=== PATIENT | male | born 1955 | race Caucasian/White ===

== ENCOUNTER 2024-03-18 13:22 | Inpatient (IN) | payer MEDICARE, OTHER ==
[2024-03-18 14:06] LABS: Basophils % (A) 0 %; Eosinophils # (A) 0.1 k/uL (0-0.7); Eosinophils % (A) 1 %; HCT 52.8 % (39.0-53.0); HGB 17.2 gm/dL (13.0-17.5); Lymphocytes # (A) 2.2 k/uL (1.0-4.8); Lymphocytes % (A) 11 %; MCH 28.8 pg (25.0-35.0); MCHC 32.5 g/dL (31.0-37.0); MCV 88.5 fL (80.0-100.0); Mean Platelet Volume 10.2; Monocytes # (A) 0.6 k/uL (0-1.0); Monocytes % (A) 3 %; Neutrophils # (A) 17.6 k/uL (1.3-7.7); Neutrophils % (A) 85 %; Platelet Count 374 k/uL (150-450); RBC 5.97 m/uL (4.30-5.90); RDW 13.5 % (11.5-15.5); WBC 20.7 k/uL (3.8-10.6)
[2024-03-18] MEDS: ONDANSETRON 4 MG/2 ML VIAL IVP STA (14:16)
[2024-03-18] MEDS: SODIUM CHLORIDE 0.9% 1,000 ML IV STA ×2 (14:16)
[2024-03-18 14:20] LABS: ALT 46 U/L (4-49); AST 35 U/L (17-59); African American GFR (CKD) 49 (>60 ml/min/1.73 sqM); Albumin 5.2 g/dL (3.5-5.0); Alkaline Phosphatase 72 U/L (38-126); Amylase 132 U/L (30-110); Anion Gap 29 mmol/L; Blood Urea Nitrogen 35 mg/dL (9-20); Calcium 9.5 mg/dL (8.4-10.2); Carbon Dioxide 11 mmol/L (22-30); Chloride 100 mmol/L (98-107); Glucose 235 mg/dL (74-99); Lipase 126 U/L (23-300); Non-African American GFR(CKD) 42 (>60 ml/min/1.73 sqM); Potassium 2.9 mmol/L (3.5-5.1); Sodium 140 mmol/L (137-145); Total Bilirubin 1.5 mg/dL (0.2-1.3); Total Protein 8.6 g/dL (6.3-8.2)
--- NOTE | 2024-03-18 14:20 | ED ---
Nausea/Vomiting/Diarrhea HPI - General Chief complaint: Nausea/Vomiting/Diarrhea Stated complaint: Vomiting Time Seen by Provider: 03/18/24 13:55 Source: patient, family, RN notes reviewed Mode of arrival: EMS Limitations: no limitations - History of Present Illness Initial comments: 68-year-old male with a history of A-fib and hypertension who is on Eliquis who states he had the onset 4 days ago with nausea vomiting after having diarrhea for a couple days. The next day he was fine the following day he tried to eat in the evening got nauseated again and started vomiting has been persistent since then intermittently he has had lightheadedness dizziness generalized weakness. He denies any overt palpitations but upon arrival was found to be in A-fib with RVR. No fevers chills sweats no overt chest pain. He did apparently have attempts at ablation and it was unsuccessful. This is per the patient's son. MD complaint: nausea, vomiting, diarrhea, other - Related Data Home Medications Medication Instructions Recorded Confirmed Metoprolol Tartrate [Lopressor] 50 mg PO BID-W/MEALS 03/18/24 03/18/24 NIFEdipine XL [Procardia Xl] 30 mg PO DAILY 03/18/24 03/18/24 Omeprazole Magnesium [PriLOSEC OTC] 20 mg PO DAILY 03/18/24 03/18/24 Previous Rx's Medication Instructions Recorded Apixaban [Eliquis] 5 mg PO BID #60 tab 12/28/22 Allergies Allergy/AdvReac Type Severity Reaction Status Date / Time No Known Allergies Allergy Verified 03/18/24 16:02 Review of Systems ROS Statement: Those systems with pertinent positive or pertinent negative responses have been documented in the HPI. ROS Other: All systems not noted in ROS Statement are negative. Past Medical History Past Medical History: Atrial Fibrillation, Hypertension History of Any Multi-Drug Resistant Organisms: None Reported Past Surgical History: No Surgical Hx Reported Past Anesthesia/Blood Transfusion Reactions: No Reported Reaction Past Psychological History: No Psychological Hx Reported Smoking Status: Current every day smoker Past Alcohol Use History: Daily Past Drug Use History: None Reported - Past Family History Mother History Unknown: Yes Additional Family Medical History / Comment(s): of old age Father Family Medical History: Myocardial Infarction ([place]) Additional Family Medical History / Comment(s): of heart attack General Exam - General Exam Comments Initial Comments: This is a well-developed well-nourished awake alert oriented x 4 male who did demonstrate active emesis. Limitations: no limitations General appearance: alert, anxious, in distress Head exam: Present: atraumatic, normocephalic, normal inspection Eye exam: Present: normal appearance, PERRL, EOMI. Absent: scleral icterus, conjunctival injection, periorbital swelling ENT exam: Present: mucous membranes dry Neck exam: Present: normal inspection, full ROM, other (No stridor JVD or bruits) Respiratory exam: Present: normal lung sounds bilaterally. Absent: respiratory distress, wheezes, rales, rhonchi, stridor Cardiovascular Exam: Present: tachycardia, irregular rhythm GI/Abdominal exam: Present: soft. Absent: bruit, pulsatile mass Extremities exam: Present: normal inspection, full ROM, normal capillary refill. Absent: tenderness, pedal edema, joint swelling, calf tenderness Back exam: Present: normal inspection Neurological exam: Present: alert, oriented X3, CN II-XII intact Psychiatric exam: Present: normal affect, normal mood Skin exam: Present: warm, dry, intact, normal color. Absent: rash Course Vital Signs 03/18/24 03/18/24 03/18/24 13:27 14:23 14:35 Temperature 97 F L 97.6 F Pulse Rate 110 H 138 H 100 Respiratory 24 20 19 Rate Blood Pressure 139/96 165/116 162/115 O2 Sat by Pulse 97 100 100 Oximetry 03/18/24 03/18/24 03/18/24 15:05 16:01 17:00 Temperature 97.7 F 97.9 F Pulse Rate 125 H 106 H 106 H Respiratory 18 17 20 Rate Blood Pressure 174/115 153/97 161/107 O2 Sat by Pulse 99 99 99 Oximetry 03/18/24 03/18/24 03/18/24 17:04 17:10 18:12 Temperature Pulse Rate 174 H 130 H 136 H Respiratory 24 15 Rate Blood Pressure 111/78 O2 Sat by Pulse 88 L Oximetry 03/18/24 03/18/24 18:15 19:05 Temperature 97.6 F Pulse Rate 125 H 123 H Respiratory 20 16 Rate Blood Pressure 142/81 112/79 O2 Sat by Pulse 91 L 96 Oximetry - Reevaluation(s) Reevaluation #1: 05/04/24 17:16 The patient was noted to have a tonic-clonic seizure during his stay in the emergency department this lasted approximately 2 minutes to 3 minutes he was given IV Ativan. Per his son who was present he did have a seizure less than a year ago that was thought to be secondary to low potassium and low magnesium levels. He is not on any medication currently. CT brain was ordered as well as IV Keppra. Medical Decision Making - Medical Decision Making Patient was reevaluated on multiple occasions I did discuss the findings with the patient's family on multiple occasions. Patient did present with 3 to 4 days of nausea vomiting with diarrhea evidence of dehydration he was found to be hypomagnesemic and hypokalemic along with dehydration. During his stay in the emergency department he did have an approximate 3-minute tonic-clonic seizure. There is a history of this before with low electrolytes. He is not on any seizure medication. He is on Eliquis. He apparently stopped able to take there for the past several days. He was given 3 mg total of IV Ativan as well as 1000 mg of Keppra. I did discuss the case with Genna tse for Dr. Swann as well as with Dr. Paul from neurology. Was pt. sent in by a medical professional or institution (, PA, PUBLIC HEALTH PROFESSOR, urgent care, hospital, or correction...) When possible be specific @ -No Did you speak to anyone other than the patient for history (EMS, parent, family, police, friend...)? What history was obtained from this source @ -Family Did you review nursing and triage notes (agree or disagree)? Why? @ -I reviewed and agree with nursing and triage notes Were old charts reviewed (outside hosp., previous admission, EMS record, old EKG, old radiological studies, urgent care reports/EKG's, correction records)? Report findings @ -No old charts were reviewed Differential Diagnosis (chest pain, altered mental status, abdominal pain women, abdominal pain men, vaginal bleeding, weakness, fever, dyspnea, syncope, headache, dizziness, GI bleed, back pain, seizure, CVA, palpatations, mental health, musculoskeletal)? @ -Atrial fibrillation, dehydration, intractable nausea vomiting EKG interpreted by me (3pts min.). @ -As above EKG interpreted by me atrial fibrillation with rapid ventricular response rate of 153 QRS duration 81 QT/QTc 216/303 left axis deviation possible right ventricular conduction delay nonspecific septal configuration was compared with EKG dated 12/27/2022 X-rays interpreted by me (1pt min.). @ -'s x-ray and KUB x-ray interpreted by me no acute findings. CT interpreted by me (1pt min.). @ -The brain interpreted by me no acute process] U/S interpreted by me (1pt. min.). @ -None done What testing was considered but not performed or refused? (CT, X-rays, U/S, labs)? Why? @ -None What meds were considered but not given or refused? Why? @ -None Did you discuss the management of the patient with other professionals (professionals i.e. , PA, PUBLIC HEALTH PROFESSOR, lab, RT, psych nurse, social services coordinator, automatic nailing machine feeder, teacher, correctional officer chief, field nurse case manager)? Give summary @ -Genna tse for Dr. Swann also with Dr. Paul from neurology Was smoking cessation discussed for >3mins.? @ -No Was critical care preformed (if so, how long)? @ -45 minutes Were there social determinants of health that impacted care today? How? (Homelessness, low income, unemployed, alcoholism, drug addiction, transportation, low edu. Level, literacy, decrease access to med. care, longterm, re hab)? @ -No Was there de-escalation of care discussed even if they declined (Discuss DNR or withdrawal of care, Hospice)? DNR status @ -No What co-morbidities impacted this encounter? (DM, HTN, Smoking, COPD, CAD, Cancer, CVA, ARF, Chemo, Hep., AIDS, mental health diagnosis, sleep apnea, morbid obesity)? @ -A-fib, pretension Was patient admitted / discharged? Hospital course, mention meds given and route, prescriptions, significant lab abnormalities, going to OR and other pertinent info. @ -Hospital course patient was admitted to this facility Undiagnosed new problem with uncertain prognosis? @ -No Drug Therapy requiring intensive monitoring for toxicity (Heparin, Nitro, Insulin, Cardizem)? @ -No Were any procedures done? @ -No Diagnosis/symptom? @ -Intractable nausea vomiting, dehydration, rapid atrial fibrillation, tonic- clonic seizure, hypokalemia, hypomagnesium Acute, or Chronic, or Acute on Chronic? @ -Acute Uncomplicated (without systemic symptoms) or Complicated (systemic symptoms)? @ -Complicated Side effects of treatment? @ -No Exacerbation, Progression, or Severe Exacerbation? @ -Exacerbation Poses a threat to life or bodily function? How? (Chest pain, [place], [place], pneumonia, PE, COPD, DKA, ARF, appy, cholecystitis, CVA, Diverticulitis, Homicidal, Suicidal, threat to staff... and all critical care pts) @ -Possible, seizure, A-fib RVR, electrolyte imbalance - Lab Data Result diagrams: 03/18/24 14:00 03/18/24 14:00 Lab Results 03/18/24 03/18/24 03/18/24 Range/Units 14:00 14:00 14:00 WBC 20.7 H (3.8-10.6) k/uL RBC 5.97 H (4.30-5.90) m/uL Hgb 17.2 (13.0-17.5) gm/dL Hct 52.8 (39.0-53.0) % MCV 88.5 (80.0-100.0) fL MCH 28.8 (25.0-35.0) pg MCHC 32.5 (31.0-37.0) g/dL RDW 13.5 (11.5-15.5) % Plt Count 374 (150-450) k/uL MPV 10.2 Neutrophils % 85 % Lymphocytes % 11 % Monocytes % 3 % Eosinophils % 1 % Basophils % 0 % Neutrophils # 17.6 H (1.3-7.7) k/uL Lymphocytes # 2.2 (1.0-4.8) k/uL Monocytes # 0.6 (0-1.0) k/uL Eosinophils # 0.1 (0-0.7) k/uL Basophils # 0.0 (0-0.2) k/uL Sodium 140 (137-145) mmol/L Potassium 2.9 L (3.5-5.1) mmol/L Chloride 100 (98-107) mmol/L Carbon Dioxide 11 L (22-30) mmol/L Anion Gap 29 mmol/L BUN 35 H (9-20) mg/dL Creatinine 1.67 H (0.66-1.25) mg/dL Est GFR (CKD-EPI)AfAm 49 (>60 ml/min/1.73 sqM) Est GFR (CKD-EPI)NonAf 42 (>60 ml/min/1.73 sqM) Glucose 235 H (74-99) mg/dL Calcium 9.5 (8.4-10.2) mg/dL Magnesium <0.4 L* (1.6-2.3) mg/dL Total Bilirubin 1.5 H (0.2-1.3) mg/dL AST 35 (17-59) U/L ALT 46 (4-49) U/L Alkaline Phosphatase 72 (38-126) U/L Troponin I 0.013 (0.000-0.034) ng/mL Total Protein 8.6 H (6.3-8.2) g/dL Albumin 5.2 H (3.5-5.0) g/dL Amylase 132 H (30-110) U/L Lipase 126 (23-300) U/L TSH 4.080 (0.465-4.680) mIU/L Critical Care Time Critical Care Time: Yes Total Critical Care Time: 45 Disposition Clinical Impression: Rapid atrial fibrillation, Seizure disorder, Hypokalemia, Hypomagnesemia, Dehydration Disposition: ADMITTED IP TO THIS HOSP Condition: Fair Referrals: Victor Hugo Daniels MD [Primary Care Provider] - 1-2 days Time of Disposition: 18:00 Decision Date: 03/18/24 Decision Time: 18:00
[2024-03-18 14:24] LABS: Magnesium <0.4 mg/dL (1.6-2.3)
[2024-03-18] MEDS: DILTIAZEM DRIP BOLUS FROM BAG 1 MG SOLN IV ONE (14:26)
[2024-03-18] MEDS: DILTIAZEM 125 MG in SODIUM CHLORIDE 0.9% 100 ML IV SCH (14:28)
[2024-03-18] MEDS: MAGNESIUM SULFATE-D5W PMX 1 GM in DEXTROSE/WATER 1 100ML.BAG IVPB SCH (14:36)
[2024-03-18] MEDS: POTASSIUM CHLORIDE 20 MEQ in WATER FOR INJECTION 1 100ML.BAG IVPB STA (14:40)
--- NOTE | 2024-03-18 15:29 | XR ---
EXAMINATION TYPE: XR chest 2V DATE OF EXAM: 03/18/2024 COMPARISON: 12/27/2022 INDICATION: Emesis TECHNIQUE: Frontal and lateral views of the chest are obtained. FINDINGS: The heart size is normal. The pulmonary vasculature is normal. The lungs are clear. IMPRESSION: 1. No acute pulmonary process.
--- NOTE | 2024-03-18 15:30 | XR ---
EXAMINATION TYPE: XR KUB DATE OF EXAM: 03/18/2024 COMPARISON: None INDICATION: Emesis TECHNIQUE: Single view abdomen FINDINGS: Very little bowel gas present within the distal descending colon. No suspicious air-fluid levels or d ifferential air-fluid levels are evident. No dilated loops of bowel are evident. No mass effect is ev ident. Psoas margins are normal. No organomegaly is present. IMPRESSION: 1. Unremarkable Abdomen
[2024-03-18] MEDS: LORazepam 2 MG/ML INJ IV STA ×2 (17:02→17:05)
[2024-03-18] MEDS: levETIRAcetam IV 500 MG/5 ML VIAL IVP STA (17:16)
[2024-03-18] MEDS: MAGNESIUM SULFATE-D5W PMX 1 GM in DEXTROSE/WATER 1 100ML.BAG IVPB ONE (17:21)
--- NOTE | 2024-03-18 18:26 | CT ---
EXAMINATION TYPE: CT brain wo con CT DLP: 1095.6 mGycm, Automated exposure control for dose reduction was used. DATE OF EXAM: 03/18/2024 5:40 PM COMPARISON: None.. CLINICAL INDICATION:Male, 68 years old with history of Seizure, abnormal neuroexam, SEIZURE TECHNIQUE: Brain: Axial CT images of the brain were obtained with coronal and sagittal reformats created and rev iewed. Contrast used: None. Oral contrast used: None. FINDINGS: Extra-axial spaces: No abnormal extra-axial fluid collections. Basilar cisterns are patent. Ventricular system: Ventricles appear dilated in proportion to the degree of cerebral atrophy. Cerebral parenchyma: No increased attenuation to suggest acute intraparenchymal hemorrhage. The gra y-white matter interface appears maintained. Mild generalized brain atrophy. White matter unremarka ble by CT. Cerebellum: No acute abnormality. Mass effect: No evidence of mass effect or midline shift. Intracranial vasculature: Atherosclerotic calcifications of the larger arteries near the skull base. Soft tissues: No acute or concerning abnormality. Visualized orbits: Orbital contents appear grossly intact. Calvarium/osseous structures: No evidence of calvarial fracture. Paranasal sinuses and mastoid air cells: Peripheral mucosal thickening in the left maxillary sinus, w ith likely some lobular superimposed fluid secretions. Mastoid air cells are clear. MRI is more sensitive for detecting acute processes such as infarct, and may be considered if clinica lly warranted. IMPRESSION: 1. No acute intracranial CT abnormality. 2. Left maxillary sinus disease.
[2024-03-18] MEDS ORDERED: NALOXONE 0.4 MG/ML 1 ML VIAL IV PRN (19:23)
[2024-03-18] MEDS: APIXABAN 5 MG TAB PO SCH (21:14)
[2024-03-18] MEDS: POTASSIUM CHLORIDE ER 20 MEQ TAB.ER PO SCH (21:14)
[2024-03-18] MEDS: SODIUM CHLORIDE 0.9% 1,000 ML IV SCH (21:14)
[2024-03-19] MEDS: METOPROLOL TARTRATE 50 MG TAB PO SCH (07:53)
[2024-03-19] MEDS: METOPROLOL TARTRATE 25 MG TAB PO SCH (08:12)
[2024-03-19] MEDS: PANTOPRAZOLE 40 MG TABLET PO SCH (08:13)
--- NOTE | 2024-03-19 08:16 | P.CRDCN ---
History of Present Illness History of present illness: HISTORY OF PRESENT ILLNESS: This is a 68-year-old male with a past medical history significant for atrial fibrillation, hypertension, GERD, seizures, former nicotine dependence, and marijuana use. Patient follows with a insurance auditor out of [facility] but patient is unable to recall his name. We have been asked to see the patient in consultation for atrial fibrillation with RVR. Patient examined at the bedside in the emergency room. Patient states on Wednesday he began to feel unwell. He reports nausea, vomiting, and diarrhea. He states on Wednesday he started to feel better but then the rest of the week he continued to feel sick. He states he continued to have episodes of vomiting and diarrhea throughout the week. He denied any fever or chills. He denied any chest pain or pressure. Denied any shortness of breath. He does report having a cough with slater-brown sputum production. Patient denied having any palpitations. He states he is unsure if he is always in atrial fibrillation or goes in and out of atrial fibrillation. Patient states his GI symptoms have resolved and he is feeling much better this morning. Patient was found to have hypokalemia, hypomagnesemia, and acute kidney injury. The patient was started on IV fluids and his electrolytes were supplemented. Patient was also found to be in A-fib with RVR. He was started on IV Cardizem. Cardizem is currently infusing at 15 mg an hour. At the time of examination, patient remains in atrial fibrillation with heart rate ranging between [id number]. Patient states he is a former cigarette smoker and quit smoking 20 years ago. He does report marijuana use. He reports alcohol use on the weekends. The patient states he had a stress test performed over a year ago by his primary insurance auditor that was negative to his knowledge. He denies having any cardiac catheterizations in the past. Additionally, the patient had a seizure while in the emergency room. Neurology has been consulted for further evaluation. DIAGNOSTICS: - EKG reveals atrial fibrillation with RVR with diffuse ST depression. - Chest xray negative for acute process. - Laboratory data: WBC 20.7. Hemoglobin 17.2. Platelet count 374. Sodium 140. Potassium 2.9. BUN 35. Creatinine 1.67. Magnesium 0.4. Bilirubin 1.5. Troponin negative x 1. TSH 4.080. - Current home cardiac medications include Eliquis 5 mg twice a day, metoprolol tartrate 50 mg twice a day, Procardia XL 30 mg daily. - Most recent echocardiogram obtained in December 2022 revealed ejection fraction 50 to 55%, mild MR, mild TR REVIEW OF SYSTEMS: At the time of my exam: CONSTITUTIONAL: Denies fever or chills. HEENT: Denies blurred vision, vision changes, or eye pain. Denies hemoptysis CARDIOVASCULAR: Denies chest pain. Denies orthopnea. Denies PND. Denies palpitations RESPIRATORY: Denies shortness of breath. GASTROINTESTINAL: Denies abdominal pain. Denies nausea or vomiting. HEMATOLOGIC: Denies bleeding disorders. GENITOURINARY: Denies any blood in urine. SKIN: Denies pruitis. Denies rash. PHYSICAL EXAM: VITAL SIGNS: Reviewed. GENERAL: Well-developed in no acute distress. HEENT: Head is normocephalic. Pupils are equal, round. Sclerae anicteric. Mucous membranes of the mouth are moist. Neck supple. No JVD or thyromegaly LUNGS: Respirations even and unlabored. Lungs essentially clear to auscultation bilaterally. HEART: Tachycardic. Irregular rate and rhythm. S1 and S2 heard. Soft systolic murmur noted. ABDOMEN: Soft. Nondistended. Nontender. EXTREMITIES: Normal range of motion. No clubbing or cyanosis. Peripheral pul ses intact. No lower extremity edema NEUROLOGIC: Awake and alert. Oriented x 3. ASSESSMENT: Nausea, vomiting, diarrhea Acute kidney injury secondary to hypovolemia due to above Hypokalemia Hypomagnesemia Atrial fibrillation with RVR, paroxysmal versus persistent Seizures GERD Former nicotine dependence Marijuana use PLAN: Obtain 2D echo to assess cardiac structure and function Continue anticoagulation with Eliquis Resume metoprolol. Increase dose to 75 mg twice a day Wean off Cardizem drip as heart rate will tolerate Hold Procardia as blood pressures are in the low 100s and to allow for increase in beta-blockers TSH checked and within normal limits Continue IV fluids. Continue to monitor kidney function Repeat labs from this morning are currently pending. Await results. Abstinence from marijuana encouraged Further recommendations pending patient course Nurse practitioner note has been reviewed by physician. Signing provider agrees with the documented findings, assessment, and plan of care documented by VETERINARY POULTRY INSPECTOR as a scribe. Past Medical History Past Medical History: Atrial Fibrillation, Hypertension History of Any Multi-Drug Resistant Organisms: None Reported Past Surgical History: No Surgical Hx Reported Past Anesthesia/Blood Transfusion Reactions: No Reported Reaction Past Psychological History: No Psychological Hx Reported Smoking Status: Current every day smoker Past Alcohol Use History: Daily Past Drug Use History: None Reported - Past Family History Mother History Unknown: Yes Additional Family Medical History / Comment(s): of old age Father Family Medical History: Myocardial Infarction ([place]) Additional Family Medical History / Comment(s): of heart attack Medications and Allergies Home Medications Medication Instructions Recorded Confirmed Type Apixaban [Eliquis] 5 mg PO BID #60 tab 12/28/22 03/18/24 Rx Metoprolol Tartrate [Lopressor] 50 mg PO BID-W/MEALS 03/18/24 03/18/24 History NIFEdipine XL [Procardia Xl] 30 mg PO DAILY 03/18/24 03/18/24 History Omeprazole Magnesium [PriLOSEC OTC] 20 mg PO DAILY 03/18/24 03/18/24 History Allergies Allergy/AdvReac Type Severity Reaction Status Date / Time No Known Allergies Allergy Verified 03/18/24 16:02 Physical Exam Vitals: Vital Signs Temp Pulse Resp BP Pulse Ox 03/19/24 05:00 80 18 107/65 97 03/19/24 03:00 95 18 108/86 97 03/19/24 01:00 93 18 124/77 95 03/18/24 23:45 97.9 F 126 H 20 107/68 96 03/18/24 21:00 94 18 115/78 95 03/18/24 19:15 115 H 20 112/79 96 03/18/24 19:05 123 H 16 112/79 96 03/18/24 18:15 97.6 F 125 H 20 142/81 91 L 03/18/24 18:12 136 H 15 111/78 88 L 03/18/24 17:10 130 H 24 03/18/24 17:04 174 H 03/18/24 17:00 106 H 20 161/107 99 03/18/24 16:01 97.9 F 106 H 17 153/97 99 03/18/24 15:05 97.7 F 125 H 18 174/115 99 03/18/24 14:35 100 19 162/115 100 03/18/24 14:23 97.6 F 138 H 20 165/116 100 05/04/24 13:27 97 F L 110 H 24 139/96 97 Intake and Output 03/18/24 03/19/24 03/19/24 22:59 06:59 14:59 Intake Total 25.250 99.75 Balance 25.250 99.75 Intake: Intake, IV Titration 25.250 99.75 Amount Diltiazem 125 mg In 25.250 99.75 Sodium Chloride 0.9% 100 ml @ 5 MG/HR 5 mls/hr IV .Q24H [facility] Rx#:[id number] Results 03/18/24 14:00 03/18/24 14:00 Cardiac Enzymes 03/18/24 03/18/24 Range/Units 14:00 14:00 AST 35 (17-59) U/L Troponin I 0.013 (0.000-0.034) ng/mL CBC 03/18/24 Range/Units 14:00 WBC 20.7 H (3.8-10.6) k/uL RBC 5.97 H (4.30-5.90) m/uL Hgb 17.2 (13.0-17.5) gm/dL Hct 52.8 (39.0-53.0) % Plt Count 374 (150-450) k/uL Comprehensive Metabolic Panel 03/18/24 Range/Units 14:00 Sodium 140 (137-145) mmol/L Potassium 2.9 L (3.5-5.1) mmol/L Chloride 100 (98-107) mmol/L Carbon Dioxide 11 L (22-30) mmol/L BUN 35 H (9-20) mg/dL Creatinine 1.67 H (0.66-1.25) mg/dL Glucose 235 H (74-99) mg/dL Calcium 9.5 (8.4-10.2) mg/dL AST 35 (17-59) U/L ALT 46 (4-49) U/L Alkaline Phosphatase 72 (38-126) U/L Total Protein 8.6 H (6.3-8.2) g/dL Albumin 5.2 H (3.5-5.0) g/dL Current Medications Generic Name Dose Route Start Last Admin Trade Name Freq PRN Reason Stop Dose Admin Apixaban 5 mg 03/18/24 21:00 03/18/24 21:14 Apixaban 5 Mg Tab PO 5 mg BID WAN Administration Protocol Diltiazem HCl 125 mg/ Sodium 125 mls @ 5 mls/hr 03/18/24 14:15 03/19/24 01:00 Chloride IV 15 mg/hr .Q24H WAN 15 mls/hr Administration 5 MG/HR Sodium Chloride 1,000 mls @ 130 mls/hr 03/18/24 19:30 03/19/24 03:19 Saline 0.9% IV 130 mls/hr .Q7H42M WAN Administration Metoprolol Tartrate 50 mg 03/19/24 07:30 Metoprolol Tartrate 50 Mg Tab PO BID-W/MEALS WAN Naloxone HCl 0.2 mg 03/18/24 19:23 Naloxone 0.4 Mg/Ml 1 Ml Vial IV Q2M PRN Opioid Reversal Nifedipine 30 mg 03/19/24 09:00 Nifedipine Xl 30 Mg Tab.Er.24 PO DAILY [facility] Pantoprazole Sodium 40 mg 03/19/24 07:30 Pantoprazole 40 Mg Tablet PO AC[facility] Potassium Chloride 20 meq 03/18/24 21:00 03/18/24 21:14 Potassium Chloride Er 20 Meq Tab.Er PO 20 meq BID WAN Administration Intake and Output 03/18/24 03/19/24 03/19/24 22:59 06:59 14:59 Intake Total 25.250 99.75 Balance 25.250 99.75 Intake: Intake, IV Titration 25.250 99.75 Amount Diltiazem 125 mg In 25.250 99.75 Sodium Chloride 0.9% 100 ml @ 5 MG/HR 5 mls/hr IV .Q24H [facility] Rx#:[id number] 03/18/24 14:00 03/18/24 14:00
[2024-03-19 08:18] LABS: Basophils % (A) 0 %; Eosinophils # (A) 0.2 k/uL (0-0.7); Eosinophils % (A) 1 %; HCT 45.7 % (39.0-53.0); HGB 14.8 gm/dL (13.0-17.5); Lymphocytes # (A) 1.6 k/uL (1.0-4.8); Lymphocytes % (A) 9 %; MCH 28.7 pg (25.0-35.0); MCHC 32.5 g/dL (31.0-37.0); MCV 88.3 fL (80.0-100.0); Mean Platelet Volume 9.2; Monocytes # (A) 0.9 k/uL (0-1.0); Monocytes % (A) 5 %; Neutrophils # (A) 16.1 k/uL (1.3-7.7); Neutrophils % (A) 84 %; Platelet Count 235 k/uL (150-450); RBC 5.18 m/uL (4.30-5.90); RDW 13.6 % (11.5-15.5); WBC 19.1 k/uL (3.8-10.6)
[2024-03-19 08:30] LABS: African American GFR (CKD) 86 (>60 ml/min/1.73 sqM); Anion Gap 9 mmol/L; Blood Urea Nitrogen 34 mg/dL (9-20); Calcium 7.9 mg/dL (8.4-10.2); Carbon Dioxide 23 mmol/L (22-30); Chloride 107 mmol/L (98-107); Glucose 103 mg/dL (74-99); Magnesium 1.1 mg/dL (1.6-2.3); Non-African American GFR(CKD) 74 (>60 ml/min/1.73 sqM); Potassium 3.6 mmol/L (3.5-5.1); Sodium 139 mmol/L (137-145)
[2024-03-19] MEDS ORDERED: NIFEdipine XL 30 MG TAB.ER.24 PO SCH (09:00)
--- NOTE | 2024-03-19 10:33 | P.HPIM ---
History of Present Illness 68-year-old pleasant male came in with complaints of nausea vomiting and some diarrhea has been going on for last 3 days and patient was severely dehydrated when he came in with acute renal failure severe hypomagnesemia of 0.4 and hypo kalemia and patient was in atrial fibrillation with rapid ventricular rate. Patient was started on Cardizem rate was slightly controlled patient was seen by cardiology was switched to metoprolol dose of which was increased patient received aggressive IV hydration with improvement of serum creatinine from 1.6 to around 1.1 magnesium improved to 1.1 potassium is 3.6. Patient takes Eliquis at home had a normal ejection fraction in the past. Patient does use marijuana which can cause vomiting. Patient denies any fever chills patient does have leukocytosis without any clear evidence of infection except for possible viral gastroenteritis. Patient denies any fever or chills. Patient does drink alcohol about 3-4 times a week. Patient any palpitations or chest pain. TSH is within normal limits. patient is still a bit hypotensive. REVIEW OF SYSTEMS: CONSTITUTIONAL: No fever, no malaise, no fatigue. HEENT: No recent visual problems or hearing problems. Denied any sore throat. CARDIOVASCULAR: No chest pain, orthopnea, PND, no palpitations, no syncope. PULMONARY: No shortness of breath, no cough, no hemoptysis. GASTROINTESTINAL: , no abdominal pain. NEUROLOGICAL: No headaches, no weakness, no numbness. HEMATOLOGICAL: Denies any bleeding or petechiae. GENITOURINARY: Denies any burning micturition, frequency, or urgency. MUSCULOSKELETAL/RHEUMATOLOGICAL: Denies any joint pain, swelling, or any muscle pain. ENDOCRINE: Denies any polyuria or polydipsia. The rest of the 14-point review of systems is negative. PHYSICAL EXAMINATION: GENERAL: The patient is alert and oriented x3, not in any acute distress. Well developed, well nourished. HEENT: Pupils are round and equally reacting to light. EOMI. No scleral icterus. No conjunctival pallor. Normocephalic, atraumatic. No pharyngeal erythema. No thyromegaly. CARDIOVASCULAR: S1 and S2 present. No murmurs, rubs, or gallops. PULMONARY: Chest is clear to auscultation, no wheezing or crackles. ABDOMEN: Soft, nontender, nondistended, normoactive bowel sounds. No palpable organomegaly. MUSCULOSKELETAL: No joint swelling or deformity. EXTREMITIES: No cyanosis, clubbing, or pedal edema. NEUROLOGICAL: Gross neurological examination did not reveal any focal deficits. SKIN: No rashes. Assessment and plan -Acute renal failure secondary to nausea vomiting and diarrhea probably secondary to marijuana use low possibility of viral gastroenteritis patient does not have any abdominal pain. Patient serum creatinine improved with IV hydration continue with IV hydration -Hypomagnesemia and hypokalemia both of which will be replaced as an secondary to alcoholism and nausea vomiting diarrhea. -Atrial fibrillation with rapid ventricular rate: Patient probably has paroxysmal A-fib atrial fibrillation is secondary to nausea vomiting patient will be continued on anticoagulation has not been taking his Eliquis because of nausea vomiting and patient was started on metoprolol oral Cardizem will be discontinued or weaned off. Echocardiogram will be obtained -Alcohol use: Counseling was provided Hypertension nifedipine is being held because of hypotension and patient is also on Cardizem at this time Gastroesophageal reflux disease: Protonix DVT prophylaxis: On anticoagulation with Eliquis Past Medical History Past Medical History: Atrial Fibrillation, Hypertension History of Any Multi-Drug Resistant Organisms: None Reported Past Surgical History: No Surgical Hx Reported Past Anesthesia/Blood Transfusion Reactions: No Reported Reaction Past Psychological History: No Psychological Hx Reported Smoking Status: Current every day smoker Past Alcohol Use History: Daily Past Drug Use History: None Reported - Past Family History Mother History Unknown: Yes Additional Family Medical History / Comment(s): of old age Father Family Medical History: Myocardial Infarction ([place]) Additional Family Medical History / Comment(s): of heart attack Medications and Allergies Home Medications Medication Instructions Recorded Confirmed Type Apixaban [Eliquis] 5 mg PO BID #60 tab 12/28/22 03/18/24 Rx Metoprolol Tartrate [Lopressor] 50 mg PO BID-W/MEALS 03/18/24 03/18/24 History NIFEdipine XL [Procardia Xl] 30 mg PO DAILY 03/18/24 03/18/24 History Omeprazole Magnesium [PriLOSEC OTC] 20 mg PO DAILY 03/18/24 03/18/24 History Allergies Allergy/AdvReac Type Severity Reaction Status Date / Time No Known Allergies Allergy Verified 03/18/24 16:02 Physical Exam Vitals: Vital Signs Temp Pulse Resp BP Pulse Ox 03/19/24 08:10 97.7 F 89 16 102/65 96 03/19/24 05:00 80 18 107/65 97 03/19/24 03:00 95 18 108/86 97 03/19/24 01:00 93 18 124/77 95 03/18/24 23:45 97.9 F 126 H 20 107/68 96 03/18/24 21:00 94 18 115/78 95 03/18/24 19:15 115 H 20 112/79 96 03/18/24 19:05 123 H 16 112/79 96 03/18/24 18:15 97.6 F 125 H 20 142/81 91 L 03/18/24 18:12 136 H 15 111/78 88 L 03/18/24 17:10 130 H 24 03/18/24 17:04 174 H 03/18/24 17:00 106 H 20 161/107 99 03/18/24 16:01 97.9 F 106 H 17 153/97 99 03/18/24 15:05 97.7 F 125 H 18 174/115 99 03/18/24 14:35 100 19 162/115 100 03/18/24 14:23 97.6 F 138 H 20 165/116 100 03/18/24 13:27 97 F L 110 H 24 139/96 97 Intake and Output 03/18/24 03/19/24 03/19/24 22:59 06:59 14:59 Intake Total 25.250 99.75 97.5 Balance 25.250 99.75 97.5 Intake: Intake, IV Titration 25.250 99.75 97.5 Amount Diltiazem 125 mg In 25.250 99.75 97.5 Sodium Chloride 0.9% 100 ml @ 5 MG/HR 5 mls/hr IV .Q24H [facility] Rx#:[id number] Results CBC & Chem 7: 03/19/24 08:04 03/19/24 08:04 Labs: Abnormal Lab Results - Last 24 Hours (Table) 03/18/24 03/18/24 03/19/24 Range/Units 14:00 14:00 08:04 WBC 20.7 H 19.1 H (3.8-10.6) k/uL RBC 5.97 H (4.30-5.90) m/uL Neutrophils # 17.6 H 16.1 H (1.3-7.7) k/uL Potassium 2.9 L (3.5-5.1) mmol/L Carbon Dioxide 11 L (22-30) mmol/L BUN 35 H (9-20) mg/dL Creatinine 1.67 H (0.66-1.25) mg/dL Glucose 235 H (74-99) mg/dL Calcium (8.4-10.2) mg/dL Magnesium <0.4 L* (1.6-2.3) mg/dL Total Bilirubin 1.5 H (0.2-1.3) mg/dL Total Protein 8.6 H (6.3-8.2) g/dL Albumin 5.2 H (3.5-5.0) g/dL Amylase 132 H (30-110) U/L 03/19/24 Range/Units 08:04 WBC (3.8-10.6) k/uL RBC (4.30-5.90) m/uL Neutrophils # (1.3-7.7) k/uL Potassium (3.5-5.1) mmol/L Carbon Dioxide (22-30) mmol/L BUN 34 H (9-20) mg/dL Creatinine (0.66-1.25) mg/dL Glucose 103 H (74-99) mg/dL Calcium 7.9 L (8.4-10.2) mg/dL Magnesium 1.1 L (1.6-2.3) mg/dL Total Bilirubin (0.2-1.3) mg/dL Total Protein (6.3-8.2) g/dL Albumin (3.5-5.0) g/dL Amylase (30-110) U/L
[2024-03-19] MEDS: MAGNESIUM SULFATE-D5W PMX 1 GM in DEXTROSE/WATER 1 100ML.BAG IVPB SCH (11:18)
[2024-03-19] MEDS: POTASSIUM CHLORIDE ER 20 MEQ TAB.ER PO STA (11:21)
--- NOTE | 2024-03-19 15:23 | P.CNNES ---
History of Present Illness Consult date: 03/19/24 Requesting physician: Romario Grace Reason for Consult: Seizure History of Present Illness: Patient is a 68-year-old right-handed male brought to the hospital by ambulance yesterday at 1:22 PM for altered mental status. EMS flowsheet not available in the chart. Patient's son was also present, who also provided with a history. Patient's son mentioned that patient had 1 episode of vomiting on Wednesday, after lunch. On Wednesday he was fine. On he threw up multiple times, 6-7 times and then same thing happened on Wednesday, about 6 or 7 times that he vomited. He could not stop vomiting. He was not able to take or keep his medications. On Wednesday, yesterday, he came to the hospital and arrived at 1:22 PM. While in the ER, patient had a grand mal seizure, witnessed by ED staff, that lasted for 2-3 minutes. He did not bite his tongue, or lost control of urine. He was given Ativan in the ER. Patient was given Keppra 1000 mg x 1 dose in the ER. Patient was found to have hypokalemia with potassium to 2.9 and magnesium <0.4. Patient's BUN was 35, creatinine 1.67 which is improved. This is likely from dehydration with acute kidney injury, improving. Chest x-ray, CT head are normal. EKG shows atrial fibrillation with rapid ventricular rate. Patient has history of atrial fibrillation, on Eliquis, not able to take medications because of vomiting. Patient had similar scenario of intractable vomiting followed by seizure in December 2022, and was found to have hyp omagnesemia with magnesium of 0.7 at that time. Patient underwent workup including EEG and MRI, both of which was normal. He was not placed on any seizure medication. He was seen by Dr. Kendall Herrera at that time. He was not discharged on seizure medication because of new onset seizure, that was felt to be provoked from electrolyte imbalance and negative workup. Please refer to his note for details. Patient does smoke 1 joint of marijuana per day for last 30 years. Very occasionally he may smoke 2 joints. On Wednesday he admits of smoking 2 joints, as he was partying with his friend. He states that sometimes he does it, very infrequently. He also drinks about 2 beers per night on the weekends. Patient states that he has not Cologuard testing performed twice and everything is fine from GI standpoint. The last time it was done was about 4 to 5 months ago. Review of Systems Completely unremarkable except as mentioned above. Denies any chest pain short ness of breath. No headache, problem with the vision. Past Medical History Past Medical History: Atrial Fibrillation, Hypertension History of Any Multi-Drug Resistant Organisms: None Reported Past Surgical History: No Surgical Hx Reported Past Anesthesia/Blood Transfusion Reactions: No Reported Reaction Past Psychological History: No Psychological Hx Reported Smoking Status: Current every day smoker Past Alcohol Use History: Daily Past Drug Use History: None Reported - Past Family History Mother History Unknown: Yes Additional Family Medical History / Comment(s): of old age Father Family Medical History: Myocardial Infarction ([place]) Additional Family Medical History / Comment(s): of heart attack Medications and Allergies Home Medications Medication Instructions Recorded Confirmed Type Apixaban [Eliquis] 5 mg PO BID #60 tab 12/28/22 03/18/24 Rx Metoprolol Tartrate [Lopressor] 50 mg PO BID-W/MEALS 03/18/24 03/18/24 History NIFEdipine XL [Procardia Xl] 30 mg PO DAILY 03/18/24 03/18/24 History Omeprazole Magnesium [PriLOSEC OTC] 20 mg PO DAILY 03/18/24 03/18/24 History Allergies Allergy/AdvReac Type Severity Reaction Status Date / Time No Known Allergies Allergy Verified 03/18/24 16:02 Physical Examination - Vital Signs Vital Signs: Vital Signs Temp Pulse Resp BP Pulse Ox 03/19/24 12:58 79 03/19/24 10:50 121 H 109/73 03/19/24 08:10 97.7 F 89 16 102/65 96 03/19/24 05:00 80 18 107/65 97 03/19/24 03:00 95 18 108/86 97 03/19/24 01:00 93 18 124/77 95 03/18/24 23:45 97.9 F 126 H 20 107/68 96 03/18/24 21:00 94 18 115/78 95 03/18/24 19:15 115 H 20 112/79 96 03/18/24 19:05 123 H 16 112/79 96 03/18/24 18:15 97.6 F 125 H 20 142/81 91 L 03/18/24 18:12 136 H 15 111/78 88 L 03/18/24 17:10 130 H 24 03/18/24 17:04 174 H 03/18/24 17:00 106 H 20 161/107 99 03/18/24 16:01 97.9 F 106 H 17 153/97 99 03/18/24 15:05 97.7 F 125 H 18 174/115 99 Intake and Output 03/18/24 03/19/24 03/19/24 22:59 06:59 14:59 Intake Total 25.250 99.75 125.0 Balance 25.250 99.75 125.0 Intake: Intake, IV Titration 25.250 99.75 125.0 Amount Diltiazem 125 mg In 25.250 99.75 125.0 Sodium Chloride 0.9% 100 ml @ 5 MG/HR 5 mls/hr IV .Q24H [facility] Rx#:[id number] Patient is an elderly male, in no acute distress. Patient is alert awake oriented to time place and person. Speech and language functions are normal. Patient can name and repeat very well. No aphasia or dysarthria. Attention, concentration and fund of knowledge is adequate. On cranial nerve examination, pupils are equal, round and reacting to light, visual lee are full on confrontation, with no neglect on double simultaneous stimulation. Extraocular muscles are intact with no nystagmus. Face is symmetric, tongue protrudes to the midline. Palatal elevation and sensation normal, hearing and shoulder shrug normal, facial sensation normal. On muscle strength testing, there is no pronator drift and the strength is normal in arms and legs distally and proximally. Deep tendon reflexes are symmetric 1-1+ and plantars downgoing bilaterally. Sensory to touch is equal with no neglect on double simultaneous stimulation. Cerebellar function showed no ataxia for [id number] testing. No dysdiadochokinesia. No ataxia for [id number] testing on either side. Tone and bulk of muscles normal. Gait deferred.. On general examination, there is no carotid bruit or murmur, S1-S2 audible. Chest is clear on consultation. Abdomen is soft nontender. No organomegaly, bowel sounds present. Peripheral pulses are present. No peripheral edema. Results - Laboratory Findings CBC and BMP: 03/19/24 08:04 03/19/24 08:04 Abnormal Lab Findings: Abnormal Labs 03/18/24 03/18/24 03/19/24 14:00 14:00 08:04 WBC 20.7 H 19.1 H RBC 5.97 H Neutrophils # 17.6 H 16.1 H Potassium 2.9 L Carbon Dioxide 11 L BUN 35 H Creatinine 1.67 H Glucose 235 H Calcium Magnesium <0.4 L* Total Bilirubin 1.5 H Total Protein 8.6 H Albumin 5.2 H Amylase 132 H 03/19/24 08:04 WBC RBC Neutrophils # Potassium Carbon Dioxide BUN 34 H Creatinine Glucose 103 H Calcium 7.9 L Magnesium 1.1 L Total Bilirubin Total Protein Albumin Amylase Assessment and Plan Assessment: * Grand mal seizure (second event), probably also provoked due to hypomagnes emia. * History of similar seizure once in December 2022, provoked due to hypomagnesemia. * Hypomagnesemia, and hypokalemia likely induced from recurrent, intractable vomiting. * Intractable vomiting of unclear cause, perhaps related to excessive use of marijuana. Possible chronic marijuana toxicity. * Acute kidney injury, likely due to hypovolemia and dehydration from vomiting, improving. * Mild to moderate alcoholism * Hypertension * Atrial fibrillation, on Eliquis. Plan: * Patient seizure likely provoked due to hypomagnesemia. * Replacement of magnesium as per IM. * Suggest patient have magnesium levels checked periodically, when he is not vomiting, to assess where he is at. If he has baseline borderline or mild hypomagnesemia, then he should be maintained on magnesium replacement. His dose of magnesium should be increased when he is going through intractable vomiting. * Patient already had complete workup performed for seizure with EEG and MRI in December 2022, which was normal. No need to repeat. * Zofran 4 mg p.o. every 8 hours as needed vomiting. Suggest giving prescription as well. * Recommend abstinence from marijuana, or at least limit amount of marijuana use, as this probably triggers intractable vomiting. * Recommend abstinence from alcoholism. * Patient informed of [place] state law of no driving unless seizure-free for 6 months, climbing ladders, operating dangerous machinery or unsupervised swimming. * Dr. Herrera will resume neurology service in the morning. Thank you for the consult.
[2024-03-19] MEDS ORDERED: METOPROLOL TARTRATE 50 MG TAB PO SCH (17:30)
[2024-03-20 02:39] VITALS: RESP 18
[2024-03-20 09:22] LABS: HCT 46.6 % (39.0-53.0); HGB 14.9 gm/dL (13.0-17.5); MCHC 32.1 g/dL (31.0-37.0); MCV 90.5 fL (80.0-100.0); Mean Platelet Volume 10.4; Platelet Count 232 k/uL (150-450); RBC 5.15 m/uL (4.30-5.90); WBC 12.5 k/uL (3.8-10.6)
[2024-03-20 09:57] LABS: African American GFR (CKD) >90 (>60 ml/min/1.73 sqM); Anion Gap 10 mmol/L; Blood Urea Nitrogen 23 mg/dL (9-20); Calcium 8.4 mg/dL (8.4-10.2); Carbon Dioxide 20 mmol/L (22-30); Chloride 113 mmol/L (98-107); Glucose 116 mg/dL (74-99); Magnesium 1.8 mg/dL (1.6-2.3); Non-African American GFR(CKD) >90 (>60 ml/min/1.73 sqM); Potassium 3.8 mmol/L (3.5-5.1); Sodium 143 mmol/L (137-145)
--- NOTE | 2024-03-20 10:44 | CA ---
Transthoracic Echo Report Name: Waldo Burrows Age: 68 Gender: M : 1955 Exam Date: 03/20/2024 07:53 Exam Location: [facility] Ht (in): 70 Wt (lb): 190 Ordering Physician: Stella Gillette Attending/Referring Phys: [id number], Leta Stevedore Hold April Ferrara RDCS Procedure CPT: Indications: LV Function, afib Cardiac Hx: Technical Quality: Good Contrast 1: Total Dose (mL): Contrast 2: Total Dose (mL): MEASUREMENTS (Male / Female) Normal Values 2D ECHO LV Diastolic Diameter PLAX 4.8 cm 4.2 - 5.9 / 3.9 - 5.3 cm LV Systolic Diameter PLAX 3.9 cm IVS Diastolic Thickness 1.2 cm 0.6 - 1.0 / 0.6 - 0.9 cm LVPW Diastolic Thickness 1.2 cm 0.6 - 1.0 / 0.6 - 0.9 cm LV Relative Wall Thickness 0.5 RV Internal Dim ED PLAX 3.7 cm LA Systolic Diameter LX 4.0 cm 3.0 - 4.0 / 2.7 - 3.8 cm LV Diastolic Volume MOD 4C 76.1 cm??? LV Systolic Volume MOD 4C 42.5 cm??? LV Ejection Fraction MOD 4C 44.1 % LV Cardiac Index MOD 4C 1325.4 cm???/min???m??? LV Diastolic Length 4C 7.5 cm LV Systolic Length 4C 6.6 cm LV Diastolic Volume MOD 2C 78.6 cm??? LV Systolic Volume MOD 2C 37.3 cm??? LV Ejection Fraction MOD 2C 52.6 % LV Cardiac Index MOD 2C 1631.5 cm???/min???m??? LV Diastolic Length 2C 7.1 cm LV Systolic Length 2C 5.8 cm LA Volume 67.9 cm??? 18 - 58 / 22 - 52 cm??? LA Volume Index 32.7 cm???/m??? 16 - 28 cm???/m??? M-MODE Aortic Root Diameter MM 3.4 cm AV Cusp Separation MM 2.1 cm DOPPLER AV Peak Velocity 123.6 cm/s AV Peak Gradient 6.1 mmHg MV Area PHT 3.2 cm??? MV Deceleration Time 203.3 ms TR Peak Velocity 254.4 cm/s TR Peak Gradient 25.9 mmHg Right Ventricular Systolic Press 30.9 mmHg FINDINGS Left Ventricle Left ventricular ejection fraction is estimated at 45-50 %. Left ventricular cavity size normal. Mildly increased septal wall thickness. No obvious regional wall motion abnormalities. Right Ventricle Mild right ventricular dilatation. Right ventricular systolic pressure within normal limits. Right Atrium Normal right atrial size. Left Atrium Mildly increased left atrial volume. Mildly increased left atrial area. Mitral Valve Structurally normal mitral valve. No mitral stenosis, regurgitation or prolapse. Aortic Valve Trileaflet aortic valve. No aortic valve stenosis or regurgitation. Tricuspid Valve Structurally normal tricuspid valve. Mild tricuspid regurgitation. Pulmonic Valve Structurally normal pulmonic valve. No pulmonic regurgitation. Pericardium No pericardial effusion. Aorta Normal size aortic root and proximal ascending aorta. CONCLUSIONS Mildly impaired LV function with EF between 45-50%. Mild concentric LVH Aortic sclerosis with no stenosis or insufficiency Normal pulmonary artery systolic pressure No evidence of pericardial effusion Previewed by: Dr. Jairon Lawton MD (Electronically Signed) Final Date: 20 Mar 2024 10:43
[2024-03-20] MEDS ORDERED: Magnesium Replacement Protocol 1 EACH MISC MISCELLANE PRN (11:30)
--- NOTE | 2024-03-20 11:51 | P.PN ---
Subjective Progress Note Date: 03/20/24 HISTORY OF PRESENT ILLNESS: This is a 68-year-old male with a past medical history significant for atrial fibrillation, hypertension, GERD, seizures, former nicotine dependence, and marijuana use. Patient follows with a baseball glove stuffer out of [facility] but patient is unable to recall his name. We have been asked to see the patient in consultation for atrial fibrillation with RVR. Patient examined at the bedside in the emergency room. Patient states on Wednesday he began to feel unwell. He reports nausea, vomiting, and diarrhea. He states on Wednesday he started to feel better but then the rest of the week he continued to feel sick. He states he continued to have episodes of vomiting and diarrhea throughout the week. He denied any fever or chills. He denied any chest pain or pressure. Denied any shortness of breath. He does report having a cough with slater-brown sputum production. Patient denied having any palpitations. He states he is unsure if he is always in atrial fibrillation or goes in and out of atrial fibrillation. Patient states his GI symptoms have resolved and he is feeling much better this morning. Patient was found to have hypokalemia, hypomagnesemia, and acute kidney injury. The patient was started on IV fluids and his electrolytes were supplemented. Patient was also found to be in A-fib with RVR. He was started on IV Cardizem. Cardizem is currently infusing at 15 mg an hour. At the time of examination, patient remains in atrial fibrillation with heart rate ranging [place] [id number]. Patient states he is a former cigarette smoker and quit smoking 20 years ago. He does report marijuana use. He reports alcohol use on the weekends. The patient states he had a stress test performed over a year ago by his primary baseball glove stuffer that was negative to his knowledge. He denies having any cardiac catheterizations in the past. Additionally, the patient had a seizure while in the emergency room. Neurology has been consulted for further evaluation. DIAGNOSTICS: - EKG reveals atrial fibrillation with RVR with diffuse ST depression. - Chest xray negative for acute process. - Laboratory data: WBC 20.7. Hemoglobin 17.2. Platelet count 374. Sodium 140. Potassium 2.9. BUN 35. Creatinine 1.67. Magnesium 0.4. Bilirubin 1.5. Troponin negative x 1. TSH 4.080. - Current home cardiac medications include Eliquis 5 mg twice a day, metoprolol tartrate 50 mg twice a day, Procardia XL 30 mg daily. - Most recent echocardiogram obtained in December 2022 revealed ejection fraction 50 to 55%, mild MR, mild TR 5/6 Patient is seen today in the ER. He states that he is feeling much better. Vomiting and diarrhea have resolved. Blood pressure 122/96, heart rate 67, pulse ox 96% on room air. Repeat blood work reveals WBC 12.5. Potassium 3.8, BUN 23 creatinine 0.75. Echocardiogram reveals EF of 45% - 50%. Mild concentric left trickle hypertro phy. Aortic sclerosis with no stenosis or insufficiency. Normal pulmonary artery systolic pressure. No evidence of pericardial effusion. PHYSICAL EXAM: VITAL SIGNS: Reviewed. GENERAL: Well-developed in no acute distress. HEENT: Head is normocephalic. Pupils are equal, round. Sclerae anicteric. Mucous membranes of the mouth are moist. LUNGS: Respirations even and unlabored. Lungs essentially clear to auscultation bilaterally. HEART: Tachycardic. Irregular rate and rhythm. S1 and S2 heard. Soft systolic murmur noted. ABDOMEN: Soft. Nondistended. Nontender. EXTREMITIES: No clubbing or cyanosis. Peripheral pulses intact. No lower extremity edema NEUROLOGIC: Awake and alert. Oriented x 3. ASSESSMENT: Nausea, vomiting, diarrhea Acute kidney injury secondary to hypovolemia due to above Hypokalemia Hypomagnesemia Atrial fibrillation with RVR, paroxysmal versus persistent Seizures GERD Former nicotine dependence Marijuana use PLAN: Continue anticoagulation with Eliquis Continue metoprolol at 75 mg twice a day Abstinence from marijuana encouraged Patient is cleared for discharge from cardiology and may follow-up with his primary baseball glove stuffer in 1 to 2 weeks. Nurse practitioner note has been reviewed by physician. Signing provider agrees with the documented findings, assessment, and plan of care documented by [employer] as a scribe. Objective - Vital Signs Vital signs: Vital Signs Temp 98 F 03/20/24 04:00 Pulse 67 03/20/24 06:00 Resp 18 03/20/24 06:00 BP 122/96 03/20/24 06:00 Pulse Ox 96 03/20/24 06:00 FiO2 Intake & Output 03/19/24 03/20/24 03/20/24 18:59 06:59 18:59 Intake Total 125.0 Balance 125.0 Intake: Intake, IV Titration 125.0 Amount Diltiazem 125 mg In 125.0 Sodium Chloride 0.9% 100 ml @ 5 MG/HR 5 mls/hr IV .Q24H [facility] Rx#:[id number] - Labs CBC & Chem 7: 03/20/24 08:44 03/20/24 08:44 Labs: Abnormal Lab Results - Last 24 Hours (Table) 03/20/24 Range/Units 08:44 WBC 12.5 H (3.8-10.6) k/uL
[2024-03-20] MEDS: MAGNESIUM SULFATE-D5W PMX 1 GM in DEXTROSE/WATER 1 100ML.BAG IVPB ONE (12:06)
[2024-03-20 16:08] VITALS: BP 128/91; PULSE 92; TEMP 99.1
--- NOTE | 2024-03-20 16:09 | P.PN ---
Subjective Progress Note Date: 03/20/24 I am seeing the patient for the first time during this hospital visit. Please refer to Dr. Paul's note for further details. It seems patient has provoke seizure from severe hypomagnesemia. Patient stated he had about 6 episodes of vomiting that lead to hypomagnesemia. Denies history of seizures. Feels back to baseline. Objective - Vital Signs Vital signs: Vital Signs Temp 99.1 F 03/20/24 15:30 Pulse 92 03/20/24 15:30 Resp 18 03/20/24 15:30 BP 128/91 03/20/24 15:30 Pulse Ox 98 03/20/24 15:30 FiO2 Intake & Output 03/19/24 03/20/24 03/20/24 18:59 06:59 18:59 Intake Total 125.0 Balance 125.0 Intake: Intake, IV Titration 125.0 Amount Diltiazem 125 mg In 125.0 Sodium Chloride 0.9% 100 ml @ 5 MG/HR 5 mls/hr IV .Q24H [facility] Rx#:[id number] - Exam General: Lying in bed is not in acute distress. Neuro: The patient is awake, alert, oriented to self, place and time. Is following simple commands. No aphsia. No facial weakness. No dysarthria. Is lifting all extremities above gravity equally. - Labs CBC & Chem 7: 03/20/24 08:44 03/20/24 08:44 Labs: Abnormal Lab Results - Last 24 Hours (Table) 03/20/24 03/20/24 Range/Units 08:44 08:44 WBC 12.5 H (3.8-10.6) k/uL Chloride 113 H (98-107) mmol/L Carbon Dioxide 20 L (22-30) mmol/L BUN 23 H (9-20) mg/dL Glucose 116 H (74-99) mg/dL Assessment and Plan Assessment: * Grand mal seizure (second event), probably also provoked due to hypomagnesemia. * History of similar seizure once in December 2022, provoked due to hypomagnesemia. * Hypomagnesemia, and hypokalemia likely induced from recurrent, intractable vomiting. * Intractable vomiting of unclear cause, perhaps related to excessive use of marijuana. Possible chronic marijuana toxicity. * Acute kidney injury, likely due to hypovolemia and dehydration from vomiting, improving. * Mild to moderate alcoholism * Hypertension * Atrial fibrillation, on Eliquis. Plan: * Patient seizure likely provoked due to hypomagnesemia. * Replacement of magnesium as per IM. * Suggest patient have magnesium levels checked periodically, when he is not vomiting, to assess where he is at. If he has baseline borderline or mild hypomagnesemia, then he should be maintained on magnesium replacement. His dose of magnesium should be increased when he is going through intractable vomiting. * Patient already had complete workup performed for seizure with EEG and MRI in December 2022, which was normal. No need to repeat per Dr. Paul. * Zofran 4 mg p.o. every 8 hours as needed vomiting. Suggest giving prescription as well. * Recommend abstinence from marijuana, or at least limit amount of marijuana use, as this probably triggers intractable vomiting. * Recommend abstinence from alcoholism. * Patient informed of [place] state law of no driving unless seizure-free for 6 months, climbing ladders, operating dangerous machinery or unsupervised swimming. * Recommend the patient to follow-up with neurologist as outpatient within 3-4 weeks. Time with Patient: Less than 30
--- NOTE | 2024-03-22 08:48 | P.DS ---
Providers Date of admission: 03/18/24 19:23 Attending physician: Abel Swann Consults: 03/18/24 19:23 Consult Physician Urgent Consulting Provider: Harvinder Paul Consult Reason/Comments: Seizure Do you want consulting provider notified?: Already Contacted 03/18/24 19:51 Consult Physician Routine Consulting Provider: Rosy Lagunas Consult Reason/Comments: Rapid atrial fibrillation Do you want consulting provider notified?: Yes, Notify in am Primary care physician: Victor Hugo Daniels MD Hospital Course: Final Diagnosis -Acute renal failure secondary to nausea vomiting and diarrhea probably sec ondary to marijuana use low possibility of viral gastroenteritis -Hypomagnesemia and hypokalemia both of which will be replaced as an secondary to alcoholism and nausea vomiting diarrhea. -Atrial fibrillation with rapid ventricular rate: Patient probably has paroxysmal A-fib atrial fibrillation is secondary to nausea vomiting -Alcohol use: Counseling was provided -Hypertension nifedipine is being held because of hypotension and patient is also on Cardizem at this time -Gastroesophageal reflux disease: Protonix Discharge Disposition Patient is stable for discharge home. Patient is recommended to continue on magnesium and potassium supplementation daily and recommended to repeat his blood work in 2 to 3 days. Patient should follow-up with his normal pantograph i engraver out of [place] on discharge in 1 to 2 weeks. Patient is recommended for alcohol cessation. Patient informed of [place] state law of no driving unless seizure-free for 6 months, climbing ladders, operating dangerous machinery or unsupervised swimming. Is also advised to refrain from marijuana use as this can induce nausea and vomiting which leads to electrolyte imbalance. Patient should follow with his PCP 1 to 2 days. Hospital Course 68-year-old pleasant male with medical history of atrial fibrillation, hypertension, gastroesophageal reflux disease, seizures, former nicotine dependence and marijuana use. Patient also reports frequent alcohol use. Patient does follow with a pantograph i engraver out of [facility] for his atrial fibrillation. Patient came in with complaints of nausea vomiting and some diarrhea has been going on for last 3 days and patient was severely dehydrated when he came in with acute renal failure severe hypomagnesemia of 0.4 and hypokalemia and patient was in atrial fibrillation with rapid ventricular rate. Was also concern for a seizure-like activity and patient does have a history of seizure-like activity in the past although he is not maintained on any medications. Patient was started on Cardizem rate was slightly controlled patient was seen by cardiology was switched to metoprolol dose of which was increased patient received aggressive IV hydration with improvement of serum creatinine from 1.6 to around 1.1 magnesium improved to 1.1 potassium is 3.6. Patient takes Eliquis at home had a normal ejection fraction in the past. Patient does use marijuana which can cause vomiting. Patient denies any fever chills patient does have leukocytosis without any clear evidence of infection except for possible viral gastroenteritis. Patient denies any fever or chills. Patient does drink alcohol about 3-4 times a week. Patient any palpitations or chest pain. TSH is within normal limits. patient is still a bit hypotensive. Evaluated cardiology recommending echocardiogram which was completed reveals an EF of 45 to 50% with mild concentric left reticular hypertrophy with aortic sclerosis with no stenosis or insufficiency. There is normal pulmonary artery systolic pressure with no evidence of pericardial effusion. Patient's nausea and vomiting and diarrhea have completely resolved. His electrolytes have normalized. He was evaluated by neurology who felt that the seizure-like activity was secondary to electrolyte imbalance mainly hypomagnesemia and recommending to repeat his magnesium level on an outpatient basis. Is reporting no chest pain no shortness of breath no nausea vomiting or diarrhea at this time. He is alert x 3 with no focal neurological deficits. He continues in atrial fibrillation however his rate is controlled at this time. Metoprolol has been increased. Patient is cleared for discharge home. Please see medication reconciliation for a list of current medications. Thank you for allowing us to participate in the care of this patient. The impression and plan of care has been dictated by Genna Carrasquillo, Nurse Practitioner as directed. Dr. Hue MD I have performed a history and physical examination and medical decision making of this patient, discussed the same with the dictator, and agree with the dictators assessment and plan as written, documented as a scribe. Based on total visit time, I have performed more than 50% of this visit. Patient Condition at Discharge: Fair Plan - Discharge Summary New Discharge Prescriptions: New Metoprolol Tartrate [Lopressor] 75 mg PO BID-W/MEALS #60 tab Potassium Chloride ER [K-Dur 20] 20 meq PO DAILY #10 tab Magnesium Oxide [Mag-Ox] 400 mg PO DAILY #10 tablet Continue Apixaban [Eliquis] 5 mg PO BID #60 tab Omeprazole Magnesium [PriLOSEC OTC] 20 mg PO DAILY Discontinued NIFEdipine XL [Procardia Xl] 30 mg PO DAILY Metoprolol Tartrate [Lopressor] 50 mg PO BID-W/MEALS Discharge Medication List Apixaban [Eliquis] 5 mg PO BID #60 tab 12/28/22 [Rx] Omeprazole Magnesium [PriLOSEC OTC] 20 mg PO DAILY 03/18/24 [History] Magnesium Oxide [Mag-Ox] 400 mg PO DAILY #10 tablet 03/20/24 [Rx] Metoprolol Tartrate [Lopressor] 75 mg PO BID-W/MEALS #60 tab 03/20/24 [Rx] Potassium Chloride ER [K-Dur 20] 20 meq PO DAILY #10 tab 03/20/24 [Rx] Follow up Appointment(s)/Referral(s): Victor Hugo Daniels MD [Primary Care Provider] - 1-2 days Ambulatory/Diagnostic Orders: Basic Metabolic Panel [LAB.AMB] Time Frame: 3 Days, Location: None Selected Magnesium [LAB.AMB] Location: None Selected Patient Instructions/Handouts: Recurrent Seizures in Adults (ED) Activity/Diet/Wound Care/Special Instructions: Patient informed of [place] state law of no driving unless seizure-free for 6 months, climbing ladders, operating dangerous machinery or unsupervised swimming. Recommend abstinence from marijuana, or at least limit amount of marijuana use, as this probably triggers intractable vomiting. Recommend abstinence from alcoholism. Continue on potassium and magnesium supplement daily Repeat blood work in 2 to 3 days to monitor electrolyte levels Follow up with your known pantograph i engraver in 1 week. Discharge Disposition: HOME SELF-CARE
--- NOTE | 2024-03-23 14:03 | CDI ---
Documentation Clarification Form Date: 03/23/2024 01:42:31 PM From: Natasha Corral RN, CCDS Phone: [phone] Admit Date: 03/18/2024 07:23:00 PM Patient Name: Waldo Burrows Visit Number: [id number] Discharge Date: 03/20/2024 03:30:00 PM ATTENTION: The Clinical Documentation Specialists (CDI) and [facility] Coding Staff appreciate your assistance in clarifying documentation. Please respond to the clarification below the line at the bottom and electronically sign. The CDI & [facility] Coding staff will review the response and follow-up if needed. Please note: Queries are made part of the Legal Health Record. If you have any questions, please contact the author of this message via ITS. Dr. Abel Swann The patient had leukocytosis, tachypnea and was in atrial fibrillation. Based on this information and the findings below, is there an additional diagnosis that is clinically appropriate for this patient? History/Risk Factors: Atrial fibrillation on Eliquis, HTN, alcoholism and marijuana user. Presented with nausea, vomiting and diarrhea, had a seizure in the ED. Admitted with acute renal failure, hypokalemia and hypomagnesemia. Clinical Indicators: H&P: "Acute renal failure secondary to nausea vomiting and diarrhea probably secondary to marijuana use. Low possibility of viral gastroenteritis. Patient does not have any abdominal pain. Hypomagnesemia and hypokalemia both of which will be replaced is secondary to alcoholism, nausea, vomiting and diarrhea." 03/18-03/20 WBC 20.7-19.1-12.5 03/18-03/19 Neutrophils 17.6-16.1 03/18 Labs: K+ 2.9, Cr 1.67, Mg <0.4 03/18 VS: HR 94-138, RR 24 Discharge summary: "patient does have leukocytosis without any clear evidence of infection except for possible viral gastroenteritis. Atrial fibrillation with rapid ventricular rate: Patient probably has paroxysmal A-fib and is secondary to nausea, vomiting and alcohol use." Treatment: Eliquis 5mg po BID 03/18-03/20; IV Cardizem 10mg x1 on 03/18 then drip 03/18- 03/20; IV MgSO4 x7 bags total; IV KCL 20meq x1 on 03/18; 1L 0.9 NS IV bolus x1 on 03/18 then 100mL/hr Is there an additional diagnosis that is clinically appropriate for this patient? [x ] Non-infectious SIRS without organ dysfunction [ ] No additional diagnosis/not clinically significant [ ] Other, please specify [ ] Unable to determine SIRS Criteria: 2 or more of the following may indicate SIRS Temperature < 96.8F (36C) or > 101.0F (38.3C) Heart Rate > 90 bpm Respiratory Rate > 20 breaths/min or PaCO2 < 32 mmHg White Blood Cell Count > 12,000 or < 4,000 cells/mm3 or > 10% bands MTDD
== END 2024-03-20 15:30 | disposition home or self-care (01) | DRG 683 ==
LOC: EC 13:22 → 3SCARD 19:23
PROVIDERS: ADMIT Internal Medicine; ATTEND Internal Medicine
DX: N17.9 Acute kidney failure, unspecified (principal); R65.10 Systemic inflammatory response syndrome (SIRS) of non-infectious origin without acute organ dysfunction; E86.0 Dehydration; E83.42 Hypomagnesemia; T40.721A Poisoning by synthetic cannabinoids, accidental (unintentional), initial encounter; F10.20 Alcohol dependence, uncomplicated; E87.6 Hypokalemia; E86.1 Hypovolemia; G40.409 Other generalized epilepsy and epileptic syndromes, not intractable, without status epilepticus; I10 Essential (primary) hypertension; I95.9 Hypotension, unspecified; I48.0 Paroxysmal atrial fibrillation; R00.0 Tachycardia, unspecified; R11.2 Nausea with vomiting, unspecified; K21.9 Gastro-esophageal reflux disease without esophagitis; Z79.01 Long term (current) use of anticoagulants; Z79.899 Other long term (current) drug therapy; Z82.49 Family history of ischemic heart disease and other diseases of the circulatory system
CPT/HCPCS: 36415; 70450; 71046; 74018; 80048; 80053; 82150; 83690; 83735; 84443; 84484; 85025; 85027; 93005; 93306; 96361; 96365; 96366; 96367; 96368; 96375; 99291

== ENCOUNTER 2024-04-13 18:37 | Inpatient (IN) | payer MEDICARE ==
[2024-04-13] MEDS: SODIUM CHLORIDE 0.9% 1,000 ML IV STA (18:51)
[2024-04-13 19:05] LABS: Basophils # (A) 0.1 k/uL (0-0.2); Basophils % (A) 1 %; Eosinophils # (A) 0.2 k/uL (0-0.7); Eosinophils % (A) 1 %; HCT 49.3 % (39.0-53.0); HGB 16.3 gm/dL (13.0-17.5); Lymphocytes # (A) 3.8 k/uL (1.0-4.8); Lymphocytes % (A) 23 %; MCV 88.1 fL (80.0-100.0); Mean Platelet Volume 9.6; Monocytes # (A) 0.9 k/uL (0-1.0); Monocytes % (A) 5 %; Neutrophils # (A) 11.2 k/uL (1.3-7.7); Neutrophils % (A) 68 %; Platelet Count 305 k/uL (150-450); RDW 13.7 % (11.5-15.5); WBC 16.4 k/uL (3.8-10.6)
[2024-04-13 19:11] LABS: INR 1.3 (<1.2); Partial Thromboplastin Time 26.1 sec (22.0-30.0)
[2024-04-13 19:15] LABS: ALT 18 U/L (4-49); AST 27 U/L (17-59); African American GFR (CKD) >90 (>60 ml/min/1.73 sqM); Albumin 4.7 g/dL (3.5-5.0); Alkaline Phosphatase 71 U/L (38-126); Anion Gap 14 mmol/L; Blood Urea Nitrogen 16 mg/dL (9-20); Carbon Dioxide 20 mmol/L (22-30); Chloride 106 mmol/L (98-107); Glucose 155 mg/dL (74-99); Non-African American GFR(CKD) 82 (>60 ml/min/1.73 sqM); Sodium 140 mmol/L (137-145); Total Bilirubin 1.5 mg/dL (0.2-1.3); Total Protein 7.4 g/dL (6.3-8.2)
[2024-04-13 19:23] LABS: Potassium 2.4 mmol/L (3.5-5.1)
[2024-04-13 19:25] LABS: Magnesium <0.4 mg/dL (1.6-2.3)
[2024-04-13] MEDS: LORazepam 2 MG/ML INJ IV STA (19:30)
--- NOTE | 2024-04-13 19:47 | ED ---
Recheck HPI - General Chief Complaint: Recheck/Abnormal Lab/Rx Stated Complaint: SEIZURE Time Seen by Provider: 04/13/24 18:45 Source: EMS Mode of arrival: EMS Limitations: no limitations - History of Present Illness Initial Comments: Waldo is a 68-year-old male presents the emergency department today via ambulance for evaluation of dehydration diaphoresis and feeling unwell. Patient was hospitalized earlier this month with similar symptoms and found to have significant electrolyte derangements. Patient was discharged home with supplemental magnesium which she reports he took for about a week but then decided to stop taking because he did not want to follow-up for repeat blood draws. Patient admits that he has not been eating or drinking well and in fact has not had anything to eat or drink today. - Related Data Home Medications Medication Instructions Recorded Confirmed Omeprazole Magnesium [PriLOSEC OTC] 20 mg PO DAILY 03/18/24 04/13/24 Previous Rx's Medication Instructions Recorded Apixaban [Eliquis] 5 mg PO BID #60 tab 12/28/22 Metoprolol Tartrate [Lopressor] 75 mg PO BID-W/MEALS #60 tab 03/20/24 Allergies Allergy/AdvReac Type Severity Reaction Status Date / Time No Known Allergies Allergy Verified 04/13/24 20:25 Review of Systems ROS Statement: Those systems with pertinent positive or pertinent negative responses have been documented in the HPI. ROS Other: All systems not noted in ROS Statement are negative. Past Medical History Past Medical History: Atrial Fibrillation, Hypertension History of Any Multi-Drug Resistant Organisms: None Reported Past Surgical History: No Surgical Hx Reported Past Anesthesia/Blood Transfusion Reactions: No Reported Reaction Past Psychological History: No Psychological Hx Reported Smoking Status: Never smoker Past Alcohol Use History: Occasional Past Drug Use History: Marijuana - Past Family History Mother History Unknown: Yes Additional Family Medical History / Comment(s): of old age Father Family Medical History: Myocardial Infarction (SD) Additional Family Medical History / Comment(s): of heart attack General Exam - General Exam Comments Initial Comments: Physical Exam GENERAL: Patient is well-developed and well-nourished. Patient is nontoxic and well- hydrated and is in no distress. HENT: Addition, dry mucous membranes EYES: PERRL, EOMI PULMONARY: Unlabored respirations. No audible rales rhonchi or wheezing was noted. CARDIOVASCULAR: Tachycardic, irregular ABDOMEN: Soft and nontender with normal bowel sounds. SKIN: Skin is clear with no lesions or rashes and otherwise unremarkable. : Deferred NEUROLOGIC: Patient is alert and oriented x3. Moving all extremities spontaneously MUSCULOSKELETAL: Normal extremities with adequate strength and full range of motion. No lower extremity swelling or edema. No calf tenderness. PSYCHIATRIC: Normal psychiatric evaluation. Limitations: no limitations Course Vital Signs 04/13/24 18:38 Temperature 98 F Pulse Rate 130 H Respiratory 22 Rate Blood Pressure 146/105 O2 Sat by Pulse 97 Oximetry Medical Decision Making - Medical Decision Making Was pt. sent in by a medical professional or institution (, PA, LAUNCH STEWARD, urgent care, hospital, or custodial...) When possible be specific @ -No Did you speak to anyone other than the patient for history (EMS, parent, family, police, friend...)? What history was obtained from this source @ -EMS, son at bedside Did you review nursing and triage notes (agree or disagree)? Why? @ -I reviewed and agree with nursing and triage notes Were old charts reviewed (outside hosp., previous admission, EMS record, old EKG, old radiological studies, urgent care reports/EKG's, custodial records)? Report findings @ -Reviewed hospitalization notes were reviewed Differential Diagnosis (chest pain, altered mental status, abdominal pain women, abdominal pain men, vaginal bleeding, weakness, fever, dyspnea, syncope, headache, dizziness, GI bleed, back pain, seizure, CVA, palpatations, mental health)? @ -Differential Altered Mental Status: Hypoglycemia, DKA, hypercapnia, ETOH, overdose, CO poisoning, trauma, myxedema coma, HTN encephalopathy, infection, encephalitis, psychosis, intercranial hemorrhage, hepatic encephalopathy, meningitis, CVA, this is not meant to be an all-inclusive list EKG interpreted by me (3pts min.). @ -EKG interpreted by me EKG obtained due to tachycardia EKG obtained at 1844 rate is 95 rhythm is A-fib with a bifascicular block no acute ST elevations or depressions no evidence of ischemia or infarction. A-fib is not new. X-rays interpreted by me (1pt min.). @ -None done CT interpreted by me (1pt min.). @ -None done U/S interpreted by me (1pt. min.). @ -None done What testing was considered but not performed or refused? (CT, X-rays, U/S, labs)? Why? @ -None What meds were considered but not given or refused? Why? @ -None Did you discuss the management of the patient with other professionals (professionals i.e. , PA, LAUNCH STEWARD, lab, RT, psych nurse, social work supervisor, assistant designer, teacher, freedom of information officer, case management rn)? Give summary @ -ICU physician Dr. Luna Was smoking cessation discussed for >3mins.? @ -No Was critical care preformed (if so, how long)? @ -Yes, 35 minutes Were there social determinants of health that impacted care today? How? (Homelessness, low income, unemployed, alcoholism, drug addiction, transportation, low edu. Level, literacy, decrease access to med. care, group home, rehab)? @ -No Was there de-escalation of care discussed even if they declined (Discuss DNR or withdrawal of care, Hospice)? DNR status @ -No What co-morbidities impacted this encounter? (DM, HTN, Smoking, COPD, CAD, Cancer, CVA, ARF, Chemo, Hep., AIDS, mental health diagnosis, sleep apnea, morbid obesity)? @ -None Was patient admitted / discharged? Hospital course, mention meds given and route, prescriptions, significant lab abnormalities, going to OR and other [facility] info. @ -Admit The patient was seen and evaluated, history was obtained from the patient and son at bedside as well as review of medical record. Patient presenting with generalized malaise, labs resulted with recurrent hypokalemia and hypomagnesemia. Replenishment was ordered however prior to getting any IV electrolytes the patient began to have a tonic-clonic seizure. Seizure lasted approximately 90 seconds, patient received 2 mg of IV Ativan. Patient had a prolonged postictal phase. Patient will be admitted to the ICU due to electrolyte derangements with seizure activity. Nephrology was consulted for electrolyte derangements neurology consulted for the seizures. Undiagnosed new problem with uncertain prognosis? @ -No Drug Therapy requiring intensive monitoring for toxicity (Heparin, Nitro, Insulin, Cardizem)? @ -Yes, IV potassium Were any procedures done? @ -No Diagnosis/symptom? @ -Hypokalemia, hypomagnesemia Acute, or Chronic, or Acute on Chronic? @ -Acute, recurrent Uncomplicated (without systemic symptoms) or Complicated (systemic symptoms)? @ -Complicated Side effects of treatment? @ -No Exacerbation, Progression, or Severe Exacerbation? @ -No Poses a threat to life or bodily function? How? (Chest pain, USA, SD, pneumonia, PE, COPD, DKA, ARF, appy, cholecystitis, CVA, Diverticulitis, Homicidal, Suicidal, threat to staff... and all critical care pts) @ -Potentially, can result in seizure, and - Lab Data Result diagrams: 04/13/24 18:48 04/13/24 18:48 Lab Results 04/13/24 04/13/24 04/13/24 Range/Units 18:48 18:48 18:48 WBC 16.4 H (3.8-10.6) k/uL RBC 5.60 (4.30-5.90) m/uL Hgb 16.3 (13.0-17.5) gm/dL Hct 49.3 (39.0-53.0) % MCV 88.1 (80.0-100.0) fL MCH 29.0 (25.0-35.0) pg MCHC 33.0 (31.0-37.0) g/dL RDW 13.7 (11.5-15.5) % Plt Count 305 (150-450) k/uL MPV 9.6 Neutrophils % 68 % Lymphocytes % 23 % Monocytes % 5 % Eosinophils % 1 % Basophils % 1 % Neutrophils # 11.2 H (1.3-7.7) k/uL Lymphocytes # 3.8 (1.0-4.8) k/uL Monocytes # 0.9 (0-1.0) k/uL Eosinophils # 0.2 (0-0.7) k/uL Basophils # 0.1 (0-0.2) k/uL PT 14.0 H (10.0-12.5) sec INR 1.3 H (<1.2) APTT 26.1 (22.0-30.0) sec Sodium 140 (137-145) mmol/L Potassium 2.4 L* (3.5-5.1) mmol/L Chloride 106 (98-107) mmol/L Carbon Dioxide 20 L (22-30) mmol/L Anion Gap 14 mmol/L BUN 16 (9-20) mg/dL Creatinine 0.97 (0.66-1.25) mg/dL Est GFR (CKD-EPI)AfAm >90 (>60 ml/min/1.73 sqM) Est GFR (CKD-EPI)NonAf 82 (>60 ml/min/1.73 sqM) Glucose 155 H (74-99) mg/dL Calcium 8.0 L (8.4-10.2) mg/dL Magnesium <0.4 L* (1.6-2.3) mg/dL Total Bilirubin 1.5 H (0.2-1.3) mg/dL AST 27 (17-59) U/L ALT 18 (4-49) U/L Alkaline Phosphatase 71 (38-126) U/L Troponin I (0.000-0.034) ng/mL Total Protein 7.4 (6.3-8.2) g/dL Albumin 4.7 (3.5-5.0) g/dL 04/13/24 Range/Units 18:48 WBC (3.8-10.6) k/uL RBC (4.30-5.90) m/uL Hgb (13.0-17.5) gm/dL Hct (39.0-53.0) % MCV (80.0-100.0) fL MCH (25.0-35.0) pg MCHC (31.0-37.0) g/dL RDW (11.5-15.5) % Plt Count (150-450) k/uL MPV Neutrophils % % Lymphocytes % % Monocytes % % Eosinophils % % Basophils % % Neutrophils # (1.3-7.7) k/uL Lymphocytes # (1.0-4.8) k/uL Monocytes # (0-1.0) k/uL Eosinophils # (0-0.7) k/uL Basophils # (0-0.2) k/uL PT (10.0-12.5) sec INR (<1.2) APTT (22.0-30.0) sec Sodium (137-145) mmol/L Potassium (3.5-5.1) mmol/L Chloride (98-107) mmol/L Carbon Dioxide (22-30) mmol/L Anion Gap mmol/L BUN (9-20) mg/dL Creatinine (0.66-1.25) mg/dL Est GFR (CKD-EPI)AfAm (>60 ml/min/1.73 sqM) Est GFR (CKD-EPI)NonAf (>60 ml/min/1.73 sqM) Glucose (74-99) mg/dL Calcium (8.4-10.2) mg/dL Magnesium (1.6-2.3) mg/dL Total Bilirubin (0.2-1.3) mg/dL AST (17-59) U/L ALT (4-49) U/L Alkaline Phosphatase (38-126) U/L Troponin I <0.012 (0.000-0.034) ng/mL Total Protein (6.3-8.2) g/dL Albumin (3.5-5.0) g/dL Disposition Clinical Impression: Atrial fibrillation with RVR, Hypomagnesemia, Hypokalemia, Dehydration Disposition: ADMITTED IP TO THIS HOSP Condition: Serious Is patient prescribed a controlled substance at d/c from ED?: No
[2024-04-13] MEDS: POTASSIUM CHLORIDE 20 MEQ in WATER FOR INJECTION 1 100ML.BAG IVPB SCH (19:52)
[2024-04-13] MEDS ORDERED: ONDANSETRON 4 MG/2 ML VIAL IVP PRN (20:09)
[2024-04-13] MEDS ORDERED: NALOXONE 0.4 MG/ML 1 ML VIAL IV PRN (20:09)
[2024-04-13] MEDS: SODIUM CHLORIDE 0.9% 1,000 ML IV SCH (20:39)
[2024-04-13] MEDS: MAGNESIUM SULFATE-D5W PMX 1 GM in DEXTROSE/WATER 1 100ML.BAG IVPB SCH (20:43)
[2024-04-13 22:11] LABS: Glucose,Whole Blood 174 mg/dL (70-110)
[2024-04-13] MEDS: POTASSIUM CHLORIDE 10 MEQ in WATER FOR INJECTION 1 100ML.BAG IVPB SCH (23:43)
[2024-04-13] MEDS: POTASSIUM CHLORIDE ER 20 MEQ TAB.ER PO SCH (23:46)
[2024-04-14 00:18] LABS: Amorphous Sediment,Urine Rare /hpf; Appearance,Urine Clear (Clear); Bilirubin,Urine Negative (Negative); Blood,Urine Small (Negative); Color,Urine Yellow; Glucose,Urine (UA) 1+ (Negative); Hyaline Casts,Urine 28 /lpf (0-2); Ketones,Urine 1+ (Negative); Leukocyte Esterase,Urine Negative (Negative); Mucus,Urine Rare /hpf; Nitrite,Urine Negative (Negative); PH, Urine 5.5 (5.0-8.0); Protein,Urine 1+ (Negative); RBC,Urine 2 /hpf (0-5); Specific Gravity,Urine 1.018 (1.001-1.035); WBC,Urine 7 /hpf (0-5)
[2024-04-14] MEDS: METOPROLOL TARTRATE 25 MG TAB PO SCH (02:00)
[2024-04-14 06:12] LABS: Basophils % (A) 0 %; Eosinophils # (A) 0.1 k/uL (0-0.7); Eosinophils % (A) 1 %; HCT 45.2 % (39.0-53.0); HGB 14.5 gm/dL (13.0-17.5); Lymphocytes % (A) 15 %; MCH 28.7 pg (25.0-35.0); MCV 89.6 fL (80.0-100.0); Mean Platelet Volume 8.9; Monocytes # (A) 1.1 k/uL (0-1.0); Monocytes % (A) 8 %; Neutrophils % (A) 74 %; Platelet Count 242 k/uL (150-450); RBC 5.04 m/uL (4.30-5.90); RDW 13.8 % (11.5-15.5); WBC 13.5 k/uL (3.8-10.6)
[2024-04-14 06:26] LABS: ALT 13 U/L (4-49); AST 23 U/L (17-59); African American GFR (CKD) >90 (>60 ml/min/1.73 sqM); Albumin 3.8 g/dL (3.5-5.0); Alkaline Phosphatase 67 U/L (38-126); Anion Gap 6 mmol/L; Blood Urea Nitrogen 16 mg/dL (9-20); Calcium 7.4 mg/dL (8.4-10.2); Carbon Dioxide 23 mmol/L (22-30); Chloride 107 mmol/L (98-107); Glucose 88 mg/dL (74-99); Magnesium 1.5 mg/dL (1.6-2.3); Non-African American GFR(CKD) >90 (>60 ml/min/1.73 sqM); Sodium 136 mmol/L (137-145); Total Protein 6.4 g/dL (6.3-8.2)
[2024-04-14] MEDS ORDERED: Magnesium Replacement Protocol 1 EACH MISC MISCELLANE PRN (08:03)
[2024-04-14] MEDS: PANTOPRAZOLE 40 MG TABLET PO SCH (08:54)
[2024-04-14] MEDS: MAGNESIUM SULFATE-D5W PMX 1 GM in DEXTROSE/WATER 1 100ML.BAG IVPB SCH (08:54)
[2024-04-14] MEDS: APIXABAN 5 MG TAB PO SCH (08:54)
[2024-04-14] MEDS: MAGNESIUM OXIDE 400 MG TAB PO SCH (09:19)
[2024-04-14] MEDS: FAMOTIDINE 20 MG TAB PO SCH (09:19)
[2024-04-14] MEDS: METOPROLOL TARTRATE 25 MG TAB ONE (09:20)
[2024-04-14] MEDS: PANTOPRAZOLE 40 MG TABLET PO ONE (09:29)
--- NOTE | 2024-04-14 09:44 | P.NPCON ---
History of Present Illness - Reason for Consult hypokalemia - History of Present Illness patient is a 68-year-old male with history of gastroesophageal reflux disease maintained on proton pump inhibitors for a few years now. Patient also has underlying history of seizures which started after his first Covid vaccine. Patient is admitted to the hospital with history of increased weakness and lethargy. Apparently patient also had the seizure. Labs revealed serum magnesium less than 0.4 and potassium of 2.4. Patient denies use of any diuretics. There is no history of diarrhea nausea or vomiting. Patient has been maintained on Prilosec for a few years now. Review of Systems as per HPI Past Medical History Past Medical History: Atrial Fibrillation, GERD/Reflux, Hypertension, Seizure Disorder History of Any Multi-Drug Resistant Organisms: None Reported Past Surgical History: Appendectomy, Tonsillectomy Past Anesthesia/Blood Transfusion Reactions: No Reported Reaction Past Psychological History: No Psychological Hx Reported Smoking Status: Former smoker Past Alcohol Use History: Occasional Additional Past Alcohol Use History / Comment(s): Patient states he drinks alcohol on some weekends, 4-5 drinks 2 days a week. Per ER doctor report, patient is a daily drinker. Past Drug Use History: Marijuana - Past Family History Mother History Unknown: Yes Additional Family Medical History / Comment(s): of old age Father Family Medical History: Myocardial Infarction ([place]) Additional Family Medical History / Comment(s): of aortic aneurysm Medications and Allergies Home Medications Medication Instructions Recorded Confirmed Type Apixaban [Eliquis] 5 mg PO BID #60 tab 12/28/22 04/13/24 Rx Omeprazole Magnesium [PriLOSEC OTC] 20 mg PO DAILY 03/18/24 04/13/24 History Metoprolol Tartrate [Lopressor] 75 mg PO BID-W/MEALS #60 tab 03/20/24 04/13/24 Rx Allergies Allergy/AdvReac Type Severity Reaction Status Date / Time No Known Allergies Allergy Verified 04/13/24 20:25 Physical Exam Vitals: Vital Signs Temp Pulse Resp BP Pulse Ox 04/14/24 07:00 68 16 115/91 97 04/14/24 06:30 78 16 118/89 93 L 04/14/24 06:00 65 21 132/92 95 04/14/24 05:30 72 18 113/86 95 04/14/24 05:00 70 18 123/91 94 L 04/14/24 04:30 19 116/87 95 04/14/24 04:00 72 16 113/98 94 L 04/14/24 03:30 75 17 121/90 94 L 04/14/24 03:00 81 18 127/87 95 04/14/24 02:30 85 14 119/84 94 L 04/14/24 02:00 94 13 113/93 95 04/14/24 01:30 98 33 H 122/98 93 L 04/14/24 01:00 98 14 137/99 93 L 04/14/24 00:30 24 131/94 94 L 04/14/24 00:00 97.4 F L 103 H 13 114/91 96 04/13/24 23:30 93 10 L 133/109 94 L 04/13/24 23:08 95 14 125/114 93 L 04/13/24 23:00 94 12 130/92 94 L 04/13/24 22:34 97.4 F L 111 H 72 H 130/92 95 04/13/24 22:12 95 04/13/24 22:00 93 18 121/93 96 04/13/24 20:30 120 H 20 108/85 95 04/13/24 20:00 113 H 20 140/108 95 04/13/24 18:38 98 F 130 H 22 146/105 97 Intake and Output 04/13/24 04/14/24 04/14/24 22:59 06:59 14:59 Intake Total 1425 75 Output Total 250 Balance 1175 75 Intake: IV 1425 75 Magnesium Sulfate-D5w Pmx 200 1 gm In Dextrose/Water 1 100ml.bag @ 100 mls/hr IVPB Q1H WAN Rx#: [id number] Potassium Chloride 10 meq 600 In Water For Injection 1 100ml.bag @ 100 mls/hr IVPB Q1H WAN Rx#: [id number] Potassium Chloride 20 meq 100 In Water For Injection 1 100ml.bag @ 50 mls/hr IVPB Q2H WAN Rx#: [id number] Sodium Chloride 0.9% 1, 525 75 000 ml @ 75 mls/hr IV . [id number] WAN Rx#:[id number] Output: Urine 250 Other: Voiding Method Urinal # Voids 0 0 Weight 86.183 kg 87.1 kg patient is awake, comfortable, no acute distress. Examination of the heart S1 and S2 Examination of the lungs bilateral breath sounds are heard Abdomen is soft nontender Examination of lower extremities shows no evidence of edema [employer] exam grossly intact Results - Lab Results Most recent lab results Calcium 7.4 mg/dL (8.4-10.2) L 04/14/24 05:48 Magnesium 1.5 mg/dL (1.6-2.3) L 04/14/24 05:48 04/14/24 05:48 04/14/24 05:48 Assessment and Plan Assessment: 1. Hypomagnesemia associated with chronic use of proton pump inhibitors. These meds are notorious to cause hypomagnesemia. We will try to hold the Prilosec and use Pepcid instead. If patient's symptoms are not controlled with Pepcid he can resume Prilosec with aggressive magnesium supplementation. 2. Hypokalemia associated with severe hypomagnesemia, status post replacement. 3. History of seizures which started after the first Covid vaccine 4. Gastroesophageal reflux disease maintained on Prilosec for a few years now 5. History of A. fib maintained on metoprolol and eliquis Plan: hold Prilosec and substitute with Pepcid for now. Continue magnesium supplementation. Repeat labs in a.m. thank you for the consultation. We will continue to follow the patient with you during his hospitalization.
--- NOTE | 2024-04-14 13:11 | P.HPIM ---
History of Present Illness H&P Date: 04/14/24 History of present illness; patient is a 68-year-old gentleman with past medical history significant for chronic atrial fibrillation, hypomagnesemia who presented to ER with complaints of feeling unwell for the last few days. Patient was admitted a month ago with similar complaints at which time he was found to be in JACOB and his electrolytes were deranged. At that time patient magnesium was very low and patient was discharged on magnesium supplementation. Patient states that he was compliant with medication for a few days but later on stopped taking medication supplementation. Patient denies any lightheaded or dizziness. Patient is complaining of lethargy and weakness. Patient has poor appetite. Denies any chest pain or shortness of breath. Denies any fever or chills. There is no complaint of diarrhea. Denies any nausea or vomiting. Initial lab work done in the ER showed WBC 16.4, hemoglobin 16.3, platelet count 305, INR 1.3, sodium 140, potassium 2.4, BUN 16, creatinine 0.97, calcium 8, magnesium 0.4, bilirubin 1.5 UA negative for infection EKG done in the ER showed heart rate of 95, no ST segment elevation or depression seen, no T-wave inversions seen. Patient admitted to internal medicine service REVIEW OF SYSTEMS: CONSTITUTIONAL: As mentioned above HEENT: No recent visual problems or hearing problems. Denied any sore throat. CARDIOVASCULAR: No chest pain, orthopnea, PND, no palpitations, no syncope. PULMONARY: No shortness of breath, no cough, no hemoptysis. GASTROINTESTINAL: No diarrhea, no nausea, no vomiting, no abdominal pain. NEUROLOGICAL: No headaches, no weakness, no numbness. HEMATOLOGICAL: Denies any bleeding or petechiae. GENITOURINARY: Denies any burning micturition, frequency, or urgency. MUSCULOSKELETAL/RHEUMATOLOGICAL: Denies any joint pain, swelling, or any muscle pain. ENDOCRINE: Denies any polyuria or polydipsia. The rest of the 14-point review of systems is negative. PHYSICAL EXAMINATION: GENERAL: The patient is alert and oriented x3, not in any acute distress. Well developed, well nourished. HEENT: Pupils are round and equally reacting to light. EOMI. No scleral icterus. No conjunctival pallor. Normocephalic, atraumatic. No pharyngeal erythema. No thyromegaly. CARDIOVASCULAR: S1 and S2 present. No murmurs, rubs, or gallops. PULMONARY: Chest is clear to auscultation, no wheezing or crackles. ABDOMEN: Soft, nontender, nondistended, normoactive bowel sounds. No palpable organomegaly. MUSCULOSKELETAL: No joint swelling or deformity. EXTREMITIES: No cyanosis, clubbing, or pedal edema. NEUROLOGICAL: Gross neurological examination did not reveal any focal deficits. SKIN: No rashes. Assessment and plan Hypomagnesemia Hypokalemia Hypocalcemia Leukocytosis Atrial fibrillation Hypertension Seizures GERD Former nicotine dependence Marijuana use Monitor vital signs Monitor CBC Monitor CMP Continue telemetry monitoring Serial electrolytes Replace magnesium Replace potassium DC Protonix Resume Lopressor Resume Eliquis Continue IV fluids Continue antiemetics Nephrology consulted Labs and medication were reviewed.. Continue same treatment. Continue with symptomatic treatment. Resume home medication. Monitor labs and vitals. DVT and GI prophylaxis. Further recommendations as per clinical course of the patient Dictation was produced using [employer] dictation software. please excuse any grammatical, word or spelling errors. Past Medical History Past Medical History: Atrial Fibrillation, GERD/Reflux, Hypertension, Seizure Disorder History of Any Multi-Drug Resistant Organisms: None Reported Past Surgical History: Appendectomy, Tonsillectomy Past Anesthesia/Blood Transfusion Reactions: No Reported Reaction Past Psychological History: No Psychological Hx Reported Smoking Status: Former smoker Past Alcohol Use History: Occasional Additional Past Alcohol Use History / Comment(s): Patient states he drinks alcohol on some weekends, 4-5 drinks 2 days a week. Per ER doctor report, patient is a daily drinker. Past Drug Use History: Marijuana - Past Family History Mother History Unknown: Yes Additional Family Medical History / Comment(s): of old age Father Family Medical History: Myocardial Infarction ([place]) Additional Family Medical History / Comment(s): of aortic aneurysm Medications and Allergies Home Medications Medication Instructions Recorded Confirmed Type Apixaban [Eliquis] 5 mg PO BID #60 tab 12/28/22 04/13/24 Rx Omeprazole Magnesium [PriLOSEC OTC] 20 mg PO DAILY 03/18/24 04/13/24 History Metoprolol Tartrate [Lopressor] 75 mg PO BID-W/MEALS #60 tab 03/20/24 04/13/24 Rx Allergies Allergy/AdvReac Type Severity Reaction Status Date / Time No Known Allergies Allergy Verified 04/13/24 20:25 Physical Exam Vitals: Vital Signs Temp Pulse Resp BP Pulse Ox 04/14/24 07:00 68 16 115/91 97 04/14/24 06:30 78 16 118/89 93 L 04/14/24 06:00 65 21 132/92 95 04/14/24 05:30 72 18 113/86 95 04/14/24 05:00 70 18 123/91 94 L 04/14/24 04:30 19 116/87 95 04/14/24 04:00 72 16 113/98 94 L 04/14/24 03:30 75 17 121/90 94 L 04/14/24 03:00 81 18 127/87 95 04/14/24 02:30 85 14 119/84 94 L 04/14/24 02:00 94 13 113/93 95 04/14/24 01:30 98 33 H 122/98 93 L 04/14/24 01:00 98 14 137/99 93 L 04/14/24 00:30 24 131/94 94 L 04/14/24 00:00 97.4 F L 103 H 13 114/91 96 04/13/24 23:30 93 10 L 133/109 94 L 04/13/24 23:08 95 14 125/114 93 L 04/13/24 23:00 94 12 130/92 94 L 04/13/24 22:34 97.4 F L 111 H 72 H 130/92 95 04/13/24 22:12 95 04/13/24 22:00 93 18 121/93 96 04/13/24 20:30 120 H 20 108/85 95 04/13/24 20:00 113 H 20 140/108 95 04/13/24 18:38 98 F 130 H 22 146/105 97 Intake and Output 04/13/24 04/14/24 04/14/24 22:59 06:59 14:59 Intake Total 1425 75 Output Total 250 Balance 1175 75 Intake: IV 1425 75 Magnesium Sulfate-D5w Pmx 200 1 gm In Dextrose/Water 1 100ml.bag @ 100 mls/hr IVPB Q1H [facility] Rx#: [id number] Potassium Chloride 10 meq 600 In Water For Injection 1 100ml.bag @ 100 mls/hr IVPB Q1H WAN Rx#: [id number] Potassium Chloride 20 meq 100 In Water For Injection 1 100ml.bag @ 50 mls/hr IVPB Q2H WAN Rx#: [id number] Sodium Chloride 0.9% 1, 525 75 000 ml @ 75 mls/hr IV . [id number] WAN Rx#:[id number] Output: Urine 250 Other: Voiding Method Urinal # Voids 0 0 Weight 86.183 kg 87.1 kg Results CBC & Chem 7: 04/14/24 05:48 04/14/24 05:48 Labs: Abnormal Lab Results - Last 24 Hours (Table) 04/13/24 04/13/24 04/13/24 Range/Units 18:48 18:48 18:48 WBC 16.4 H (3.8-10.6) k/uL Neutrophils # 11.2 H (1.3-7.7) k/uL Monocytes # (0-1.0) k/uL PT 14.0 H (10.0-12.5) sec INR 1.3 H (<1.2) Sodium (137-145) mmol/L Potassium 2.4 L* (3.5-5.1) mmol/L Carbon Dioxide 20 L (22-30) mmol/L Glucose 155 H (74-99) mg/dL POC Glucose (mg/dL) (70-110) mg/dL Calcium 8.0 L (8.4-10.2) mg/dL Magnesium <0.4 L* (1.6-2.3) mg/dL Total Bilirubin 1.5 H (0.2-1.3) mg/dL Urine Protein (Negative) Urine Glucose (UA) (Negative) Urine Ketones (Negative) Urine Blood (Negative) Urine WBC (0-5) /hpf Amorphous Sediment (None) /hpf Hyaline Casts (0-2) /lpf Urine Mucus (None) /hpf 04/13/24 04/13/24 04/14/24 Range/Units 22:09 23:50 05:48 WBC 13.5 H (3.8-10.6) k/uL Neutrophils # 10.0 H (1.3-7.7) k/uL Monocytes # 1.1 H (0-1.0) k/uL PT (10.0-12.5) sec INR (<1.2) Sodium (137-145) mmol/L Potassium (3.5-5.1) mmol/L Carbon Dioxide (22-30) mmol/L Glucose (74-99) mg/dL POC Glucose (mg/dL) 174 H (70-110) mg/dL Calcium (8.4-10.2) mg/dL Magnesium (1.6-2.3) mg/dL Total Bilirubin (0.2-1.3) mg/dL Urine Protein 1+ H (Negative) Urine Glucose (UA) 1+ H (Negative) Urine Ketones 1+ H (Negative) Urine Blood Small H (Negative) Urine WBC 7 H (0-5) /hpf Amorphous Sediment Rare H (None) /hpf Hyaline Casts 28 H (0-2) /lpf Urine Mucus Rare H (None) /hpf 04/14/24 Range/Units 05:48 WBC (3.8-10.6) k/uL Neutrophils # (1.3-7.7) k/uL Monocytes # (0-1.0) k/uL PT (10.0-12.5) sec INR (<1.2) Sodium 136 L (137-145) mmol/L Potassium (3.5-5.1) mmol/L Carbon Dioxide (22-30) mmol/L Glucose (74-99) mg/dL POC Glucose (mg/dL) (70-110) mg/dL Calcium 7.4 L (8.4-10.2) mg/dL Magnesium 1.5 L (1.6-2.3) mg/dL Total Bilirubin (0.2-1.3) mg/dL Urine Protein (Negative) Urine Glucose (UA) (Negative) Urine Ketones (Negative) Urine Blood (Negative) Urine WBC (0-5) /hpf Amorphous Sediment (None) /hpf Hyaline Casts (0-2) /lpf Urine Mucus (None) /hpf Thrombosis Risk Factor Assmnt - Choose All That Apply Any of the Below Risk Factors Present?: No Other Risk Factors: Yes Each Risk Factor Represents 2 Points: Age 61-74 years Other congenital or acquired thrombophilia - If yes, enter type in comment: No Thrombosis Risk Factor Assessment Total Risk Factor Score: 2 Thrombosis Risk Factor Assessment Level: Low Risk
--- NOTE | 2024-04-14 13:52 | P.CNPUL ---
History of Present Illness Consult date: 04/14/24 Requesting physician: Jesus Martines Reason for consult: other (Severe hypomagnesemia and hypokalemia) Chief complaint: Not feeling well for past few days History of present illness: This is a 68-year-old white male brought in by EMS for symptoms of not feeling well, for a few days. Patient was noted to be dehydrated, and diaphoretic upon presentation, apparently had a similar presentation earlier this month wherein he was found to have significant electrolyte abnormalities. Patient was treated back then for severe hypomagnesemia and hypokalemia. Patient was advised to continue supplemental magnesium after his last hospital discharge, however about a week ago patient decided to stop taking any more magnesium supplements. Upon evaluation in the ER, patient apparently had a witnessed seizure, responded immediately to Ativan. Blood work in the ER clearly reveals profound and severe hypomagnesemia and severe hypokalemia. Patient was given 4 g of magnesium and he was given potassium in the ER, admitted to the ICU and this consult was initiated. I saw this patient today, this morning he seems to be doing much better, his magnesium is up to 1.5 and he is receiving another dose of magnesium 2 g to be given today. His potassium is up to 4.0 and his magnesium is up to 1.5 from less than 0.4 on admission patient is known to have history of severe GERD, and he takes Prilosec on a regular basis. Patient is also a smoker and drinker. During my evaluation, the patient had no actual symptoms whatsoever, hence I am recommending transferring the patient out of the ICU to a cardiac f ashish for further monitoring and correction of his electrolytes imbalance Review of Systems REVIEW OF SYSTEMS: CONSTITUTIONAL: Generalized weakness, fatigue. EYES: Negative. ENT: Negative. CARDIAC: Negative. PULMONARY: As above. GI: History of GERD, takes Prilosec on a regular basis.. GENITOURINARY: Negative. MUSCULOSKELETAL: As noted in HPI SKIN: Negative. NEUROPSYCH: As noted in HPI patient had witnessed seizure while in the ER ENDOCRINE: Negative. HEMATOLOGIC: Negative. Past Medical History Past Medical History: Atrial Fibrillation, GERD/Reflux, Hypertension, Seizure Disorder History of Any Multi-Drug Resistant Organisms: None Reported Past Surgical History: Appendectomy, Tonsillectomy Past Anesthesia/Blood Transfusion Reactions: No Reported Reaction Past Psychological History: No Psychological Hx Reported Smoking Status: Former smoker Past Alcohol Use History: Occasional Additional Past Alcohol Use History / Comment(s): Patient states he drinks alcohol on some weekends, 4-5 drinks 2 days a week. Per ER doctor report, patient is a daily drinker. Past Drug Use History: Marijuana - Past Family History Mother History Unknown: Yes Additional Family Medical History / Comment(s): of old age Father Family Medical History: Myocardial Infarction ([place]) Additional Family Medical History / Comment(s): of aortic aneurysm Medications and Allergies Home Medications Medication Instructions Recorded Confirmed Type Apixaban [Eliquis] 5 mg PO BID #60 tab 12/28/22 04/13/24 Rx Omeprazole Magnesium [PriLOSEC OTC] 20 mg PO DAILY 03/18/24 04/13/24 History Metoprolol Tartrate [Lopressor] 75 mg PO BID-W/MEALS #60 tab 03/20/24 04/13/24 Rx Allergies Allergy/AdvReac Type Severity Reaction Status Date / Time No Known Allergies Allergy Verified 04/13/24 20:25 Physical Exam Vitals: Vital Signs Temp Pulse Pulse Pulse Resp BP BP 04/14/24 12:00 98.2 F 72 72 16 107/82 04/14/24 10:00 21 128/106 04/14/24 09:00 67 18 107/92 04/14/24 08:00 98 F 67 18 123/88 04/14/24 07:00 68 16 115/91 04/14/24 06:30 78 16 118/89 04/14/24 06:00 65 21 132/92 04/14/24 05:30 72 18 113/86 04/14/24 05:00 70 18 123/91 04/14/24 04:30 19 116/87 04/14/24 04:00 72 16 113/98 04/14/24 03:30 75 17 121/90 04/14/24 03:00 81 18 127/87 04/14/24 02:30 85 14 119/84 04/14/24 02:00 94 13 113/93 04/14/24 01:30 98 33 H 122/98 04/14/24 01:00 98 14 137/99 04/14/24 00:30 24 131/94 04/14/24 00:00 97.4 F L 103 H 13 114/91 04/13/24 23:30 93 10 L 133/109 04/13/24 23:08 95 14 125/114 04/13/24 23:00 94 12 130/92 04/13/24 22:34 97.4 F L 111 H 72 H 130/92 04/13/24 22:12 04/13/24 22:00 93 18 121/93 04/13/24 20:30 120 H 20 108/85 04/13/24 20:00 113 H 20 140/108 04/13/24 18:38 98 F 130 H 22 146/105 Pulse Ox 04/14/24 12:00 95 04/14/24 10:00 95 04/14/24 09:00 95 04/14/24 08:00 95 04/14/24 07:00 97 04/14/24 06:30 93 L 04/14/24 06:00 95 04/14/24 05:30 95 04/14/24 05:00 94 L 04/14/24 04:30 95 04/14/24 04:00 94 L 04/14/24 03:30 94 L 04/14/24 03:00 95 04/14/24 02:30 94 L 04/14/24 02:00 95 04/14/24 01:30 93 L 04/14/24 01:00 93 L 04/14/24 00:30 94 L 04/14/24 00:00 96 04/13/24 23:30 94 L 04/13/24 23:08 93 L 04/13/24 23:00 94 L 04/13/24 22:34 95 04/13/24 22:12 95 04/13/24 22:00 96 04/13/24 20:30 95 04/13/24 20:00 95 04/13/24 18:38 97 Intake and Output 04/13/24 04/14/24 04/14/24 22:59 06:59 14:59 Intake Total 1425 620 Output Total 250 Balance 1175 620 Intake: IV 1425 500 Magnesium Sulfate-D5w Pmx 200 200 1 gm In Dextrose/Water 1 100ml.bag @ 100 mls/hr IVPB Q1H [facility] Rx#: [id number] Potassium Chloride 10 meq 600 In Water For Injection 1 100ml.bag @ 100 mls/hr IVPB Q1H WAN Rx#: [id number] Potassium Chloride 20 meq 100 In Water For Injection 1 100ml.bag @ 50 mls/hr IVPB Q2H WAN Rx#: [id number] Sodium Chloride 0.9% 1, 525 300 000 ml @ 75 mls/hr IV . [id number] WAN Rx#:[id number] Oral 120 Output: Urine 250 Other: Voiding Method Urinal Urinal # Voids 0 1 # Bowel Movements 1 Weight 86.183 kg 87.1 kg General: The patient is awake and alert, in no distress, and does not appear acutely ill. Skin: Skin is warm and dry and no rashes or lesions are noted. Eye: Pupils are equal, round and reactive to light, extra-ocular movements are intact; there is normal conjunctiva bilaterally. Ears, nose, mouth and throat: There are moist mucous membranes and no oral lesions. Neck: The neck is supple, there is no tenderness or JVD. Cardiovascular: There is a regular rate and rhythm. No murmur, rub or gallop is appreciated. Respiratory: Clear throughout no crackles rhonchi or wheezes Gastrointestinal: Soft, non-distended, non-tender abdomen without masses or organomegaly noted. There is no rebound or guarding present. Bowel sounds are unremarkable. Back: There is no tenderness to palpation in the midline. There is no obvious deformity. Musculoskeletal: Normal ROM, no tenderness, There is no pedal edema. There is no calf tenderness or swelling. No cords were appreciated. Neurological: CN II-XII intact, Cranial nerves III through XII are intact. There are no obvious motor or sensory deficits. Coordination appears grossly intact. Speech is normal. Psychiatric: Cooperative, appropriate mood & affect, normal judgment. Results - Laboratory Findings CBC and BMP: 04/14/24 05:48 04/14/24 05:48 PT/INR, D-dimer PT 14.0 sec (10.0-12.5) H 04/13/24 18:48 INR 1.3 (<1.2) H 04/13/24 18:48 Abnormal lab findings: Abnormal Labs 04/13/24 04/13/24 04/13/24 18:48 18:48 18:48 WBC 16.4 H Neutrophils # 11.2 H Monocytes # PT 14.0 H INR 1.3 H Sodium Potassium 2.4 L* Carbon Dioxide 20 L Glucose 155 H POC Glucose (mg/dL) Calcium 8.0 L Magnesium <0.4 L* Total Bilirubin 1.5 H Urine Protein Urine Glucose (UA) Urine Ketones Urine Blood Urine WBC Amorphous Sediment Hyaline Casts Urine Mucus 04/13/24 04/13/24 04/14/24 22:09 23:50 05:48 WBC 13.5 H Neutrophils # 10.0 H Monocytes # 1.1 H PT INR Sodium Potassium Carbon Dioxide Glucose POC Glucose (mg/dL) 174 H Calcium Magnesium Total Bilirubin Urine Protein 1+ H Urine Glucose (UA) 1+ H Urine Ketones 1+ H Urine Blood Small H Urine WBC 7 H Amorphous Sediment Rare H Hyaline Casts 28 H Urine Mucus Rare H 04/14/24 05:48 WBC Neutrophils # Monocytes # PT INR Sodium 136 L Potassium Carbon Dioxide Glucose POC Glucose (mg/dL) Calcium 7.4 L Magnesium 1.5 L Total Bilirubin Urine Protein Urine Glucose (UA) Urine Ketones Urine Blood Urine WBC Amorphous Sediment Hyaline Casts Urine Mucus Assessment and Plan Assessment: Impression: Acute hypomagnesemia, likely associated with chronic use of proton pump inhibitors. Acute hypokalemia secondary to severe hypomagnesemia History of seizure disorder, may have been exacerbated by his electrolytes imbalance on admission History of chronic atrial fibrillation, on Eliquis and metoprolol History of GERD History of alcoholism Benign essential hypertension Recommendation: Continue present supportive care measures Resume home meds Continue to monitor magnesium and potassium and address accordingly as per protocol. Transfer patient out of the ICU to a monitored bed and selective Suggest CIWA protocol, and recommend alcohol abstinence. Continue seizure precaution Will continue to follow Time with Patient: Greater than 30
[2024-04-15 07:00] LABS: Basophils % (A) 0 %; Eosinophils # (A) 0.2 k/uL (0-0.7); Eosinophils % (A) 2 %; HCT 43.5 % (39.0-53.0); HGB 13.5 gm/dL (13.0-17.5); Lymphocytes # (A) 1.9 k/uL (1.0-4.8); Lymphocytes % (A) 20 %; MCH 28.6 pg (25.0-35.0); MCHC 31.1 g/dL (31.0-37.0); MCV 91.9 fL (80.0-100.0); Mean Platelet Volume 9.3; Monocytes # (A) 0.6 k/uL (0-1.0); Monocytes % (A) 6 %; Neutrophils # (A) 6.6 k/uL (1.3-7.7); Neutrophils % (A) 70 %; Platelet Count 204 k/uL (150-450); RBC 4.73 m/uL (4.30-5.90); RDW 13.9 % (11.5-15.5); WBC 9.4 k/uL (3.8-10.6)
[2024-04-15 07:13] LABS: ALT 12 U/L (4-49); AST 25 U/L (17-59); African American GFR (CKD) >90 (>60 ml/min/1.73 sqM); Albumin 3.4 g/dL (3.5-5.0); Alkaline Phosphatase 61 U/L (38-126); Anion Gap 4 mmol/L; Blood Urea Nitrogen 17 mg/dL (9-20); Calcium 7.8 mg/dL (8.4-10.2); Carbon Dioxide 22 mmol/L (22-30); Chloride 112 mmol/L (98-107); Glucose 84 mg/dL (74-99); Magnesium 1.9 mg/dL (1.6-2.3); Non-African American GFR(CKD) >90 (>60 ml/min/1.73 sqM); Potassium 4.4 mmol/L (3.5-5.1); Sodium 138 mmol/L (137-145); Total Bilirubin 1.1 mg/dL (0.2-1.3); Total Protein 5.9 g/dL (6.3-8.2)
[2024-04-15 08:25] VITALS: PULSE 80; RESP 23; TEMP 97.7
--- NOTE | 2024-04-15 10:55 | P.PN ---
Subjective Progress Note Date: 04/15/24 Principal diagnosis: Severe hypomagnesemia and hypokalemia This is a 68-year-old white male brought in by EMS for symptoms of not feeling well, for a few days. Patient was noted to be dehydrated, and diaphoretic upon presentation, apparently had a similar presentation earlier this month wherein he was found to have significant electrolyte abnormalities. Patient was treated back then for severe hypomagnesemia and hypokalemia. Patient was advised to continue supplemental magnesium after his last hospital discharge, however about a week ago patient decided to stop taking any more magnesium supplements. Upon evaluation in the ER, patient apparently had a witnessed seizure, responded immediately to Ativan. Blood work in the ER clearly reveals profound and severe hypomagnesemia and severe hypokalemia. Patient was given 4 g of magnesium and he was given potassium in the ER, admitted to the ICU and this consult was initiated. I saw this patient today, this morning he seems to be doing much better, his magnesium is up to 1.5 and he is receiving another dose of magnesium 2 g to be given today. His potassium is up to 4.0 and his magnesium is up to 1.5 from less than 0.4 on admission patient is known to have history of severe GERD, and he takes Prilosec on a regular basis. Patient is also a smoker and drinker. During my evaluation, the patient had no actual symptoms whatsoever, hence I am recommending transferring the patient out of the ICU to a cardiac fl oor for further monitoring and correction of his electrolytes imbalance Patient was weighed today on 04/15/24, patient is basically back to normal, asymptomatic, his potassium is normal at 4.4 and his magnesium is normal at 1.9, calcium is normal albumin is 3.4, renal profile is normal all the patient is doing great, asymptomatic, and I believe the patient to consider for discharge planning if cleared by nephrology meantime I did recommend a urine magnesium although I believe his hypomagnesemia seems to be multifactorial. Could be related to his alcoholism, proton pump inhibitors, and there may be a component of malabsorption. And poor nutritional status with significant intake of magnesium in his diet. I doubt significant renal loss of magnesium, nonetheless I did recommend a urine magnesium to be checked Objective - Vital Signs Vital signs: Vital Signs Temp 97.7 F 04/15/24 07:42 Pulse 80 04/15/24 07:42 Resp 23 04/15/24 07:42 BP 132/92 04/15/24 07:42 Pulse Ox 96 04/15/24 07:42 FiO2 Intake & Output 04/14/24 04/15/24 04/15/24 18:59 06:59 18:59 Intake Total 860 675 330 Output Total 400 300 Balance 860 275 30 Intake: IV 500 675 130 Invasive Line 1 5 Invasive Line 2 5 Magnesium Sulfate-D5w Pmx 200 1 gm In Dextrose/Water 1 100ml.bag @ 100 mls/hr IVPB Q1H [facility] Rx#: [id number] Sodium Chloride 0.9% 1, 300 675 120 000 ml @ 75 mls/hr IV . [id number] [facility] Rx#:[id number] Oral 360 200 Output: Urine 400 300 Other: Voiding Method Urinal Urinal Urinal # Voids 1 1 # Bowel Movements 1 - Exam General: The patient is awake and alert, in no distress, on room air Skin: Skin is warm and dry and no rashes or lesions are noted. Eye: Pupils are equal, round and reactive to light, extra-ocular movements are intact; there is normal conjunctiva bilaterally. Ears, nose, mouth and throat: There are moist mucous membranes and no oral lesions. Neck: The neck is supple, there is no tenderness or JVD. Cardiovascular: There is a regular rate and rhythm. No murmur, rub or gallop is appreciated. Respiratory: Clear throughout no crackles rhonchi or wheezes Gastrointestinal: Soft, non-distended, non-tender abdomen without masses or organomegaly noted. There is no rebound or guarding present. Bowel sounds are unremarkable. Back: There is no tenderness to palpation in the midline. There is no obvious deformity. Musculoskeletal: Normal ROM, no tenderness, There is no pedal edema. There is no calf tenderness or swelling. No cords were appreciated. Neurological: CN II-XII intact, Cranial nerves III through XII are intact. There are no obvious motor or sensory deficits. Coordination appears grossly intact. Speech is normal. Psychiatric: Cooperative, appropriate mood & affect, normal judgment. - Labs CBC & Chem 7: 04/15/24 06:14 04/15/24 06:14 Labs: Abnormal Lab Results - Last 24 Hours (Table) 04/15/24 Range/Units 06:14 Chloride 112 H (98-107) mmol/L Calcium 7.8 L (8.4-10.2) mg/dL Total Protein 5.9 L (6.3-8.2) g/dL Albumin 3.4 L (3.5-5.0) g/dL Assessment and Plan Assessment: Impression: Acute hypomagnesemia, multifactorial as noted earlier in my HPI, related to his alcoholism, proton pump inhibitors, malabsorption of magnesium, less nutritional intake of magnesium, and possible renal losses of magnesium Acute hypokalemia secondary to severe hypomagnesemia History of seizure disorder, may have been exacerbated by his electrolytes imbalance on admission History of chronic atrial fibrillation, on Eliquis and metoprolol History of GERD History of alcoholism, mostly contributing to his hypomagnesemia Benign essential hypertension Recommendation: Patient could be considered for discharge home today if cleared by nephrology Continue magnesium supplement orally Continue present supportive care measures Urine magnesium was ordered Continue seizure precaution Time with Patient: Less than 30
--- NOTE | 2024-04-15 11:05 | P.CNNES ---
History of Present Illness Consult date: 04/14/24 Requesting physician: Krystal Lainez Reason for Consult: Seizure History of Present Illness: Patient is a 68-year-old male, well-known to neurology service for his history of seizures related to hypomagnesemia. Patient was just recently seen in hospital consultation by myself on 03/19/2024. Please refer to my note for details. He came to the hospital by ambulance yesterday at 6:37 PM for diaphoresis, dehydration, feeling unwell. Patient states that he was at home and his hand started seizing up, barely got to the phone, and dial 911. After he arrived to the ER, patient had a witnessed grand mal seizure that lasted approximately 90 seconds. Patient denied any tongue bite or loss of control of urine. Patient was given 2 mg Ativan IV. Patient had a prolonged postictal state. He was admitted to the ICU for seizure and electrolyte imbalance. Patient's blood test shows sodium 140, potassium 2.4, calcium 8.0 and magnesium 0.4. Hepatic panel is normal, troponin negative, UA negative. His repeat magnesium is much improved 1.5. Potassium is 4.0. WBC 16.4, which is now 13.5. EKG showed atrial fibrillation. Patient does take Eliquis 5 mg twice daily. Patient states that he did not hit his head from the seizure. Patient states that after discharge from the hospital, he took magnesium supplementation only for 1 week and then stopped taking it. He did not have magnesium level checked as was recommended on the previous hospitalization. He denies any tongue bite or loss of control of urine. He states he has decreased appetite, but has not had any vomiting. Patient still smokes and uses edible marijuana most of the night, in a week. He also drinks on the weekend, about 5 beers or 1/4th bottle of scotch. Review of Systems Completely unremarkable at this time. Denies any chest pain shortness of breath wheezing or cough. Denies any nausea vomiting diarrhea. All review of systems unremarkable. Past Medical History Past Medical History: Atrial Fibrillation, GERD/Reflux, Hypertension, Seizure Disorder History of Any Multi-Drug Resistant Organisms: None Reported Past Surgical History: Appendectomy, Tonsillectomy Past Anesthesia/Blood Transfusion Reactions: No Reported Reaction Past Psychological History: No Psychological Hx Reported Smoking Status: Former smoker Past Alcohol Use History: Occasional Additional Past Alcohol Use History / Comment(s): Patient states he drinks alcohol on some weekends, 4-5 drinks 2 days a week. Per ER doctor report, patient is a daily drinker. Past Drug Use History: Marijuana - Past Family History Mother History Unknown: Yes Additional Family Medical History / Comment(s): of old age Father Family Medical History: Myocardial Infarction ([place]) Additional Family Medical History / Comment(s): of aortic aneurysm Medications and Allergies Home Medications Medication Instructions Recorded Confirmed Type Apixaban [Eliquis] 5 mg PO BID #60 tab 12/28/22 04/13/24 Rx Omeprazole Magnesium [PriLOSEC OTC] 20 mg PO DAILY 03/18/24 04/13/24 History Metoprolol Tartrate [Lopressor] 75 mg PO BID-W/MEALS #60 tab 03/20/24 04/13/24 Rx Allergies Allergy/AdvReac Type Severity Reaction Status Date / Time No Known Allergies Allergy Verified 04/13/24 20:25 Physical Examination - Vital Signs Vital Signs: Vital Signs Temp Pulse Pulse Pulse Resp BP BP 04/14/24 12:00 98.2 F 72 72 16 107/82 04/14/24 10:00 21 128/106 04/14/24 09:00 67 18 107/92 04/14/24 08:00 98 F 67 18 123/88 04/14/24 07:00 68 16 115/91 04/14/24 06:30 78 16 118/89 04/14/24 06:00 65 21 132/92 04/14/24 05:30 72 18 113/86 04/14/24 05:00 70 18 123/91 04/14/24 04:30 19 116/87 04/14/24 04:00 72 16 113/98 04/14/24 03:30 75 17 121/90 04/14/24 03:00 81 18 127/87 04/14/24 02:30 85 14 119/84 04/14/24 02:00 94 13 113/93 04/14/24 01:30 98 33 H 122/98 04/14/24 01:00 98 14 137/99 04/14/24 00:30 24 131/94 04/14/24 00:00 97.4 F L 103 H 13 114/91 04/13/24 23:30 93 10 L 133/109 04/13/24 23:08 95 14 125/114 04/13/24 23:00 94 12 130/92 04/13/24 22:34 97.4 F L 111 H 72 H 130/92 04/13/24 22:12 04/13/24 22:00 93 18 121/93 04/13/24 20:30 120 H 20 108/85 04/13/24 20:00 113 H 20 140/108 04/13/24 18:38 98 F 130 H 22 146/105 Pulse Ox 04/14/24 12:00 95 04/14/24 10:00 95 04/14/24 09:00 95 04/14/24 08:00 95 04/14/24 07:00 97 04/14/24 06:30 93 L 04/14/24 06:00 95 04/14/24 05:30 95 04/14/24 05:00 94 L 04/14/24 04:30 95 04/14/24 04:00 94 L 04/14/24 03:30 94 L 04/14/24 03:00 95 04/14/24 02:30 94 L 04/14/24 02:00 95 04/14/24 01:30 93 L 04/14/24 01:00 93 L 04/14/24 00:30 94 L 04/14/24 00:00 96 04/13/24 23:30 94 L 04/13/24 23:08 93 L 04/13/24 23:00 94 L 04/13/24 22:34 95 04/13/24 22:12 95 04/13/24 22:00 96 04/13/24 20:30 95 04/13/24 20:00 95 04/13/24 18:38 97 Intake and Output 04/13/24 04/14/24 04/14/24 22:59 06:59 14:59 Intake Total 1425 620 Output Total 250 Balance 1175 620 Intake: IV 1425 500 Magnesium Sulfate-D5w Pmx 200 200 1 gm In Dextrose/Water 1 100ml.bag @ 100 mls/hr IVPB Q1H [facility] Rx#: [id number] Potassium Chloride 10 meq 600 In Water For Injection 1 100ml.bag @ 100 mls/hr IVPB Q1H [facility] Rx#: [id number] Potassium Chloride 20 meq 100 In Water For Injection 1 100ml.bag @ 50 mls/hr IVPB Q2H [facility] Rx#: [id number] Sodium Chloride 0.9% 1, 525 300 000 ml @ 75 mls/hr IV . [id number] [facility] Rx#:[id number] Oral 120 Output: Urine 250 Other: Voiding Method Urinal Urinal # Voids 0 1 # Bowel Movements 1 Weight 86.183 kg 87.1 kg Patient is an elderly male, in no acute distress. Patient is alert awake oriented to time place and person. Speech and language functions are normal. Patient can name and repeat very well. No aphasia or dysarthria. Attention, concentration and fund of knowledge is adequate. On cranial nerve examination, pupils are equal, round and reacting to light, visual lee are full on confrontation, with no neglect on double simultaneous stimulation. Extraocular muscles are intact with no nystagmus. Face is symmetric, tongue protrudes to the midline. Palatal elevation and sensation normal, hearing and shoulder shrug normal, facial sensation normal. On muscle strength testing, there is no pronator drift and the strength is normal in arms and legs distally and proximally. Deep tendon reflexes are symmetric 1-1+ and plantars downgoing bilaterally. Sensory to touch is equal with no neglect on double simultaneous stimulation. Cerebellar function showed no ataxia for [id number] testing. No dysdiadochokinesia. No ataxia for [id number] testing on either side. Tone and bulk of muscles normal. Gait deferred.. On general examination, there is no carotid bruit or murmur, S1-S2 audible. Chest is clear on consultation. Abdomen is soft nontender. No organomegaly, bowel sounds present. Peripheral pulses are present. No peripheral edema. Results - Laboratory Findings CBC and BMP: 04/15/24 06:14 04/15/24 06:14 Abnormal Lab Findings: Abnormal Labs 04/13/24 04/13/24 04/13/24 18:48 18:48 18:48 WBC 16.4 H Neutrophils # 11.2 H Monocytes # PT 14.0 H INR 1.3 H Sodium Potassium 2.4 L* Carbon Dioxide 20 L Glucose 155 H POC Glucose (mg/dL) Calcium 8.0 L Magnesium <0.4 L* Total Bilirubin 1.5 H Urine Protein Urine Glucose (UA) Urine Ketones Urine Blood Urine WBC Amorphous Sediment Hyaline Casts Urine Mucus 04/13/24 04/13/24 04/14/24 22:09 23:50 05:48 WBC 13.5 H Neutrophils # 10.0 H Monocytes # 1.1 H PT INR Sodium Potassium Carbon Dioxide Glucose POC Glucose (mg/dL) 174 H Calcium Magnesium Total Bilirubin Urine Protein 1+ H Urine Glucose (UA) 1+ H Urine Ketones 1+ H Urine Blood Small H Urine WBC 7 H Amorphous Sediment Rare H Hyaline Casts 28 H Urine Mucus Rare H 04/14/24 05:48 WBC Neutrophils # Monocytes # PT INR Sodium 136 L Potassium Carbon Dioxide Glucose POC Glucose (mg/dL) Calcium 7.4 L Magnesium 1.5 L Total Bilirubin Urine Protein Urine Glucose (UA) Urine Ketones Urine Blood Urine WBC Amorphous Sediment Hyaline Casts Urine Mucus Assessment and Plan Assessment: * Grand mal seizure (third event), most likely again provoked due to hypomagnesemia. * History of similar seizure in December 2022, and 03/19/2024, each time provoked due to hypomagnesemia. * Hypomagnesemia, and hypokalemia, recurrent, unclear cause. Patient did not have any vomiting or diarrhea at this time. Nephrology suspect from Prilosec. * Mild to moderate alcoholism * Hypertension * Atrial fibrillation, on Eliquis. * Marijuana use, persistent * Alcoholism, on the weekend Plan: * Nephrology has seen the patient, and felt hypomagnesemia could be related to P rilosec. It has been changed to Pepcid. * Suggest checking magnesium level at least twice a month for next few months. * Recommend supplementation of magnesium if the level starts going down. * Recommend abstinence from marijuana and alcoholism. * No indication for antiepileptic medication, as the seizure is provoked from electrolyte imbalance. * No indication for EEG/MRI, as it was recently completed with the last hospitalization. * Patient was again informed of [place] state law of no driving unless seizure- free for 6 months, climbing ladders, operating dangerous machinery or unsupervised swimming. * Neurologically clear when medically cleared. Neurology will sign off. Please reconsult if any question. Thank you for the consult.
[2024-04-15 11:44] VITALS: BP 147/114
--- NOTE | 2024-04-15 11:53 | P.DS ---
Providers Date of admission: 04/13/24 20:11 Expected date of discharge: 04/15/24 Attending physician: Talat Boone Consults: 04/13/24 20:09 Consult Physician Routine Consulting Provider: Esmer Hansen Consult Reason/Comments: hypokalemia, hypomag - recurrent Do you want consulting provider notified?: Yes, Notify in am 04/13/24 20:30 Consult Physician Routine Consulting Provider: Harvinder Paul Consult Reason/Comments: seizure Do you want consulting provider notified?: Yes, Notify in am Consult Physician Urgent Consulting Provider: Conrad Ortega Consult Reason/Comments: ICU Do you want consulting provider notified?: Already Contacted Primary care physician: Victor Hugo Daniels MD Hospital Course: Discharge diagnoses; Hypomagnesemia Hypokalemia Hypocalcemia Leukocytosis Atrial fibrillation Hypertension Seizures GERD Former nicotine dependence Marijuana use Hospital course; patient is a 68-year-old gentleman with past medical history significant for chronic atrial fibrillation, hypomagnesemia who presented to ER with complaints of feeling unwell for the last few days. Patient was admitted a month ago with similar complaints at which time he was found to be in JACOB and his electrolytes were deranged. At that time patient magnesium was very low and patient was discharged on magnesium supplementation. Patient states that he was compliant with medication for a few days but later on stopped taking medication supplementation. Patient denies any lightheaded or dizziness. Patient is complaining of lethargy and weakness. Patient has poor appetite. Denies any ch est pain or shortness of breath. Denies any fever or chills. There is no complaint of diarrhea. Denies any nausea or vomiting. Initial lab work done in the ER showed WBC 16.4, hemoglobin 16.3, platelet count 305, INR 1.3, sodium 140, potassium 2.4, BUN 16, creatinine 0.97, calcium 8, magnesium 0.4, bilirubin 1.5 UA negative for infection EKG done in the ER showed heart rate of 95, no ST segment elevation or depression seen, no T-wave inversions seen. Patient admitted to internal medicine service 04/15. Patient seen and examined. Blood work this morning WBC 9.4, hemoglobin 13.5, sodium 138, potassium 4.4, BUN 17, creatinine 0.79. hypomagnesemia has resolved. Nephrology recommended discharging patient on magnesium oxide 400mg daily. Repeat BMP in couple of days. Cleared patient for discharge PHYSICAL EXAMINATION: GENERAL: The patient is alert and oriented x3, not in any acute distress. Well developed, well nourished. HEENT: Pupils are round and equally reacting to light. EOMI. No scleral icterus. No conjunctival pallor. Normocephalic, atraumatic. No pharyngeal erythema. No thyromegaly. CARDIOVASCULAR: S1 and S2 present. No murmurs, rubs, or gallops. PULMONARY: Chest is clear to auscultation, no wheezing or crackles. ABDOMEN: Soft, nontender, nondistended, normoactive bowel sounds. No palpable organomegaly. MUSCULOSKELETAL: No joint swelling or deformity. EXTREMITIES: No cyanosis, clubbing, or pedal edema. NEUROLOGICAL: Gross neurological examination did not reveal any focal deficits. SKIN: No rashes. Dictation was produced using [employer] dictation software. please excuse any grammatical, word or spelling errors. Patient Condition at Discharge: Good Plan - Discharge Summary Discharge Rx Participant: No New Discharge Prescriptions: New Magnesium Oxide [Mag-Ox] 400 mg PO DAILY 30 Days #30 tab Famotidine [Pepcid] 20 mg PO BID 30 Days #60 tab Continue Metoprolol Tartrate [Lopressor] 75 mg PO BID-W/MEALS #60 tab Apixaban [Eliquis] 5 mg PO BID #60 tab Discontinued Omeprazole Magnesium [PriLOSEC OTC] 20 mg PO DAILY Discharge Medication List Apixaban [Eliquis] 5 mg PO BID #60 tab 12/28/22 [Rx] Metoprolol Tartrate [Lopressor] 75 mg PO BID-W/MEALS #60 tab 03/20/24 [Rx] Famotidine [Pepcid] 20 mg PO BID 30 Days #60 tab 04/15/24 [Rx] Magnesium Oxide [Mag-Ox] 400 mg PO DAILY 30 Days #30 tab 04/15/24 [Rx] Follow up Appointment(s)/Referral(s): Victor Hugo Daniels MD [Primary Care Provider] - 1-2 days Esmer Hansen MD [STAFF PHYSICIAN] - 1 Week Discharge Disposition: HOME SELF-CARE
--- NOTE | 2024-04-15 12:31 | P.PN ---
Subjective patient is seen for follow-up for hypokalemia and hypomagnesemia. Currently off of Prilosec. Serum potassium at 4.4 and serum magnesium at 1.9 today. No significant complaints. Objective - Vital Signs Vital signs: Vital Signs Temp 97.7 F 04/15/24 07:42 Pulse 80 04/15/24 07:42 Resp 23 04/15/24 11:16 BP 147/114 04/15/24 11:16 Pulse Ox 96 04/15/24 07:42 FiO2 Intake & Output 04/14/24 04/15/24 04/15/24 18:59 06:59 18:59 Intake Total 860 675 330 Output Total 400 300 Balance 860 275 30 Intake: IV 500 675 130 Invasive Line 1 5 Invasive Line 2 5 Magnesium Sulfate-D5w Pmx 200 1 gm In Dextrose/Water 1 100ml.bag @ 100 mls/hr IVPB Q1H [facility] Rx#: [id number] Sodium Chloride 0.9% 1, 300 675 120 000 ml @ 75 mls/hr IV . [id number] [facility] Rx#:[id number] Oral 360 200 Output: Urine 400 300 Other: Voiding Method Urinal Urinal Urinal # Voids 1 1 # Bowel Movements 1 - Exam patient is awake, comfortable, no acute distress. Examination of the heart S1 and S2 Examination of the lungs bilateral breath sounds are heard Abdomen is soft nontender Examination of lower extremities shows no evidence of edema [employer] ADMINISTRATIVE ASSISTANT exam grossly intact - Labs CBC & Chem 7: 04/15/24 06:14 04/15/24 06:14 Labs: Abnormal Lab Results - Last 24 Hours (Table) 04/15/24 Range/Units 06:14 Chloride 112 H (98-107) mmol/L Calcium 7.8 L (8.4-10.2) mg/dL Total Protein 5.9 L (6.3-8.2) g/dL Albumin 3.4 L (3.5-5.0) g/dL Assessment and Plan Assessment: 1. Hypomagnesemia associated with chronic use of proton pump inhibitors. These meds are notorious to cause hypomagnesemia. continue to hold Prilosec. If patient's symptoms are not controlled with Pepcid he can resume Prilosec with aggressive magnesium supplementation. 2. Hypokalemia associated with severe hypomagnesemia, status post replacement. 3. History of seizures which started after the first Covid vaccine 4. Gastroesophageal reflux disease maintained on Prilosec for a few years now 5. History of A. fib maintained on metoprolol and eliquis Plan: continue with Pepcid Okay to discharge patient and repeat labs as outpatient in 2-3 days. Continue with magnesium supplementation for now.
== END 2024-04-15 13:00 | disposition home or self-care (01) | DRG 641 ==
LOC: EC 18:37 → 2SICU 20:11
PROVIDERS: ADMIT Hospitalist; ATTEND Hospitalist
DX: E83.42 Hypomagnesemia (principal); I45.2 Bifascicular block; I48.20 Chronic atrial fibrillation, unspecified; G40.409 Other generalized epilepsy and epileptic syndromes, not intractable, without status epilepticus; E83.51 Hypocalcemia; E86.0 Dehydration; D72.829 Elevated white blood cell count, unspecified; F10.20 Alcohol dependence, uncomplicated; I10 Essential (primary) hypertension; E87.6 Hypokalemia; T50.906A Underdosing of unspecified drugs, medicaments and biological substances, initial encounter; Z91.128 Patient's intentional underdosing of medication regimen for other reason; K21.9 Gastro-esophageal reflux disease without esophagitis; Z79.01 Long term (current) use of anticoagulants; Z79.899 Other long term (current) drug therapy; Z87.891 Personal history of nicotine dependence
CPT/HCPCS: 36415; 80053; 81001; 83735; 84484; 85025; 85610; 85730; 93005; 96361; 96365; 96368; 96375; 99291